=== PATIENT | female | born 1965 | race Caucasian/White ===

== ENCOUNTER 2017-06-14 18:02 | Inpatient (IN) | payer OTHER ==
[~2017-06-14] VITALS: Ht 154.9 cm; Wt 55.3 kg
--- NOTE | ~2017-06-14 | PR ---
[place], [place] PROGRESS NOTE NAME: JOE PEREZ [facility] #: [id number] UNIT #: [id number] ROOM: 427 DOCTOR: ROLF GALLOWAY MD BIRTHDATE: [birth year] DOS: 06/16/2017 SUBJECTIVE: The patient is not having any new complaints. Denies any chest pains, palpitations or shortness of breath. Abdominal pain is improved. OBJECTIVE: VITAL SIGNS: Pressure is 124/72, pulse of 86, respirations 20, temperature 97.7. LUNGS: Diminished breath sounds. No wheezes, rales or rhonchi heard. HEART: Regular. ABDOMEN: Obese, soft, nontender this morning. EXTREMITIES: Without any edema. ASSESSMENT AND PLAN: 1. Acute diverticulitis with small intramural abscesses. The patient is clinically much improved with less abdominal pain. Appreciate Dr. Chance's input. WBC count is pending today. 2. History of gastroesophageal reflux disease, diverticulosis. The patient to have a colonoscopy as an outpatient when the infection is all better. We will start on a regular diet and hopefully can discharge in a.m. ROLF GALLOWAY MD CM:PNTRANS [id number] ROLF GALLOWAY MD 06/16/17 0748 interface
--- NOTE | ~2017-06-14 | PR ---
[place], [place] PROGRESS NOTE [id number] UNIT #: [id number] ROOM: 427 DOCTOR: LAYTON CAMPUZANO MD BIRTHDATE: [birth year] DOS: 06/19/2017 SUBJECTIVE: The patient still have some suprapubic and right lower quadrant pain. OBJECTIVE: GENERAL APPEARANCE: The patient is alert and oriented x 3, in no visible distress. VITAL SIGNS: Blood pressure 108/73, heart rate 78 beats per minute, breathing 20 times per minute, temperature 98 degrees Fahrenheit. HEENT AND NECK: Exam within normal limits. CARDIOVASCULAR SYSTEM: Heart rate is regular in rate and rhythm. S1 and S2 normally audible. LUNGS: Clear to auscultation. ABDOMEN: Exam except for that right lower quadrant tenderness to date. No rigidity, guarding or rebound tenderness. EXTREMITIES: Without significant cyanosis or edema. IMPRESSION: 1. Persistent right lower quadrant pain and tenderness and diverticulitis with small intramural abscess, being followed by Surgery. White cell count persistently high at 13,300 despite of treatment with IV antibiotics. I will also get Infectious Disease specialist, Dr. Hernandez involved in patient's care and continue the antibiotics. 2. Previous history of diverticulosis. 3. Chronic migraine type headaches. 4. Gastroesophageal reflux disease and esophagitis, asymptomatic. 5. History of diverticulosis. LAYTON CAMPUZANO MD CM:PNTRANS [phone] LAYTON CAMPUZANO MD 06/19/172141 interface
--- NOTE | ~2017-06-14 | PR ---
[place], [place] PROGRESS NOTE NAME: JOE PEREZ [facility] #: [id number] UNIT #: [id number] ROOM: 427 DOCTOR: LAYTON CAMPUZANO MD BIRTHDATE: [birth year] DOS: 06/17/2017 SUBJECTIVE: The patient says her right lower quadrant pain is improved and they are only 2/10 now and she is on liquid diet. OBJECTIVE: VITAL SIGNS: Blood pressure 123/66, heart rate 73 beats per minute, breathing 20 times per minute, temperature 98.3 degrees Fahrenheit. GENERAL APPEARANCE: The patient is alert and oriented x 3, in no visible distress. Except for mild tenderness in the right lower quadrant on palpation. HEENT AND NECK: Exam within normal limits. CARDIOVASCULAR SYSTEM: Heart rate is regular in rate and rhythm. S1 and S2 normally audible. LUNGS: Clear to auscultation. ABDOMEN: Soft, nontender. No obvious organomegaly. Bowel sounds are present. EXTREMITIES: Without significant cyanosis or edema. IMPRESSION: The patient is being followed by surgeon, Dr. Chance. 1. Acute diverticulitis with right lower quadrant tenderness, clinically improving, small intramural abscess, recommended conservative treatment by Surgery. 2. Leukocytosis from diverticulitis. White cell count of 12,800, improving with treatment. 3. Gastroesophageal reflux disease and esophagitis, asymptomatic. 4. History of diverticulosis. LAYTON CAMPUZANO MD CM:PNTRANS 99 3 LAYTON CAMPUZANO MD 06/18/17213 interface
--- NOTE | ~2017-06-14 | PR ---
[place], [place] PROGRESS NOTE NAME: JOE PEREZ [facility] #: [id number] UNIT #: [id number] ROOM: 427 DOCTOR: LAYTON CAMPUZANO MD BIRTHDATE: [birth year] DOS: 06/18/2017 ____ 1. Acute diverticulitis involving mid sigmoid colon with 1.6 cm possible intramural abscess involving the affected segment. The patient is recommended followup colonoscopy as an outpatient. 2. Chronic migraine type of headaches. The patient's white cell count got elevated, so Dr. Chance, the surgeon does not want patient going home today until the leukocytosis resolves. 3. Gastroesophageal reflux disease and esophagitis, asymptomatic. 4. History of diverticulosis. 5. Leukocytosis related to diverticulitis. White cell count elevated at 13,900, more than yesterday. LAYTON CAMPUZANO MD CM:PNTRANS [phone] LAYTON CAMPUZANO MD 06/18/172054 interface
--- NOTE | ~2017-06-14 | WRIGHTHP ---
[place], [place] PATIENT HISTORY AND PHYSICAL EXAM NAME: JOE PEREZ [facility] #: [id number] UNIT #: [id number] ROOM: 427 DOCTOR: ROLF GALLOWAY MD BIRTHDATE: [birth year] DOS: 06/14/2017 HISTORY OF PRESENT ILLNESS: The patient is 51 years old, comes in with complaints of abdominal pain. On Wednesday she had eaten some corn and developed some abdominal pain, right after that and she has been having continued pain for the last 3-4 days. She denies having any chest pains or palpitations, does not have any fever or chills. Does not have any nausea or any emesis. She came into the Emergency Room yesterday after suffering for a few days at home and had workup including a CT of the abdomen and pelvis as well as a white cell count, which showed acute diverticulitis with a small intramural abscess as well as a white cell count of 16.3. This morning, the patient has pain, but otherwise feels okay. Denies having any chest pains or palpitations. PAST MEDICAL HISTORY: Significant for history of diverticulitis with a colonoscopy about 6 years ago. SOCIAL HISTORY: Significant for smoking about a half a pack of cigarettes a day, does not use any alcohol. Lives at home. She is not . Her children are all grown. She is not currently employed. FAMILY HISTORY: Significant for father who of lung cancer and mother who has dementia. PHYSICAL EXAMINATION: GENERAL: She is awake and alert and oriented. VITAL SIGNS: Graphic trend shows a pressure 120/69, pulse of 81, respirations 20, temperature 97.6. LUNGS: Diminished breath sounds. No wheezes, rales or rhonchi heard. HEART: Regular. ABDOMEN: Obese, soft, tenderness in the left lower quadrant. EXTREMITIES: Without any edema. LABORATORY DATA: White cell count is 16.3, hemoglobin 15.1, hematocrit 44.7. Comprehensive normal limits. CT scan finding as above. ASSESSMENT AND PLAN: 1. Acute diverticulitis with a small intramural abscess. The patient is placed on Flagyl and Cipro, kept n.p.o. and IV fluids ordered. A surgical consultation was obtained. 2. History of diverticulitis with colonoscopy about 6 years ago. 3. Chronic migraine headaches. She takes sumatriptan, which will be continued. Also, meloxicam, which will be kept on hold right now. [place], [place] PATIENT HISTORY AND PHYSICAL EXAM NAME: JOE PEREZ UNIT #: [id number] ROOM: [facility] DOCTOR: ROLF GALLOWAY MD BIRTHDATE: [birth year] ROLF GALLOWAY MD CM:HISPHYS:PATIENT HISTORY AND PHYSICAL EXAMINATION 1 0 ROLF GALLOWAY MD 06/15/17830 interface
--- NOTE | ~2017-06-14 | DS ---
[place], [place] DISCHARGE SUMMARY [facility] [id number] UNIT #: [id number] ROOM: 427 DOCTOR: LAYTON CAMPUZANO MD BIRTHDATE: [birth year] DOS: 06/19/2017 DISCHARGE DIAGNOSES: 1. Acute sigmoid diverticulitis with leukocytosis evaluated by Dr. Flores, the surgeon today and cleared for discharge. 2. Chronic migraine type headaches. 3. Gastroesophageal reflux disease and esophagitis. 4. History of diverticulosis. 5. History of colonoscopy 6 years back. HOSPITAL COURSE: The patient was admitted by Dr. Caryn José when she presented with abdominal pains and the CT of the abdomen showed sigmoid diverticulitis with a small intramural abscess with white cell count elevated to 16,300. The patient was admitted and seen by Dr. Chance, the surgeon and recommended conservative treatment with antibiotics. White cell count has improved to 13,300 and the patient was seen by another surgeon, Dr. Flores today and he has cleared her for discharge and for patient to take Levaquin and Flagyl as an outpatient now for 10 more days and follow up with Surgery and with primary care physician, Dr. José. For the rest of the details, please see the progress note I dictated today. White cell count has reduced to 13,300. DISCHARGE MANAGEMENT: Flagyl 500 mg 3 times a day for 10 days, Levaquin 500 mg daily for 10 days, Vicodin 1 tablet every 6 hours p.r.n. for pain, Imitrex 25 mg every 2 hours p.r.n., not to exceed 2 tablets a day. FOLLOWUP: 1. Follow up with Dr. Caryn José and with Surgery in less than a week. 2. Recommend a repeat of CBC. LAYTON CAMPUZANO MD CM:CHRISTINA [phone] LAYTON CAMPUZANO MD 06/19/172030 interface
[~2017-06-14 18:02] MED LIST: FLEXERIL5 MG PO; MOBIC15 MG PO; PREDNICOT20 MG PO; PREDNISONE5 MG PO; PROZAC10 M1 PO; TRAMADOL50 MG PO; ULTRAM50 MG PO
[2017-06-14 18:08] VITALS: BP 130/90
[2017-06-14 19:07] LABS: HEMATOCRIT 44.7 % (37.0-47.0); HEMOGLOBIN 15.1 g/dl (12.0-16.0); MEAN CELL VOLUME 91.8 fl (81.0-99.0); MEAN CORPUSCULAR HGB CONC 33.8 g/dl (33.0-37.0); MEAN PLATELET VOLUME 9.5 fl (9.6-12.3); PLATELET COUNT AUTOMATED 293 10*3/uL (130-400); RED BLOOD COUNT 4.87 10*6/uL (4.10-5.10); RED CELL DISTRI WIDTH 13.5 % (0-14.5); WHITE BLOOD COUNT 16.3 10*3/uL (4.8-10.8)
[2017-06-14 19:10] VITALS: BP 119/75
--- NOTE | 2017-06-14 19:20 | NUR ---
PATIENT STATES PAIN 2/10 WHEN LAYING WHEN WALKING HIGHER
[2017-06-14 19:24] LABS: ALBUMIN 3.6 gm/dl (3.1-4.5); ALKALINE PHOSPHATASE 85 U/L (45-117); BUN 16 mg/dl (7-24); CHLORIDE 100 mmol/L (98-107); CREATININE 0.74 mg/dL (0.55-1.02); LIPASE 142 U/L (73-393); POTASSIUM 3.9 mmol/L (3.5-5.1); SGOT/AST 15 IU/L (3-35); SGPT/ALT 19 U/L (12-78); SODIUM 139 mmol/L (136-145); TOTAL PROTEIN 8.6 gm/dL (6.4-8.2)
[2017-06-14 19:25] LABS: PLATELET SUFFICIENCY NORMAL (NORMAL); TOTAL CELLS COUNTED 100 #CELLS
[2017-06-14 20:23] LABS: BILIRUBIN NEGATIVE (NEGATIVE); BLOOD 1+ (NEGATIVE); CLARITY SL CLOUDY (CLEAR); COLOR YELLOW (YELLOW); GLUCOSE NEGATIVE (NEGATIVE); KETONE NEGATIVE (NEGATIVE); LEUKO ESTERASE NEGATIVE (NEGATIVE); NITRITE NEGATIVE (NEGATIVE); PH 5.5 (5.0-9.0); SPECIFIC GRAVITY <= 1.005 (1.005-1.030); UROBILINOGEN 0.2 E.U./dl (0.2-1.0)
[2017-06-14 20:49] LABS: BACTERIA TRACE; WBC 0-2 wbc/hpf (0-5)
[2017-06-14 21:30] VITALS: BP 131/84
--- NOTE | 2017-06-14 21:30 | NUR ---
Time: 2129 A 51 year old FEMALE admitted to under services of DR. NILESH PICKENS,ROLF. Pt. arrived via stretcher from ER. Chief complaint: DIVERTICULITIS, LEUKOCYTOSIS. MITCHELL ALARCON
--- NOTE | 2017-06-14 22:06 | NUR ---
SPOKE TO AT THIS TIME. NEW ADMISSION ORDERS RECEIVED.
--- NOTE | 2017-06-14 22:25 | NUR ---
SPOKE WITH AT THIS TIME REGARDING PATIENT REQUESTING NICOTINE PATCH. INSTRUCTED TO ORDER 14 MG NICOTINE PATCH DAILY.
--- NOTE | 2017-06-14 23:21 | NUR ---
IV DEMEROL ADMINISTERED SLOWLY PER PRN ORDER FOR PATIENT C/O ABDOMINAL PAIN 03/03. PATIENT STATES PAIN IS "ALL OVER" AND SAYS IT "COMES AND GOES." WILL MONITOR EFFECTIVENESS. CALL LIGHT LEFT WITHIN REACH.
[2017-06-15] VITALS: BP 120/69
[2017-06-15] MEDS ORDERED: IMITREX25 M1 PO (00:21)
--- NOTE | 2017-06-15 00:29 | NUR ---
EARLIER MEDICATION APPEARS EFFECTIVE. PATIENT ASLEEP IN BED AT THIS TIME. NO S/S OF DISTRESS NOTED. WILL CONTINUE TO MONITOR. CALL LIGHT LEFT WITHIN REACH.
--- NOTE | 2017-06-15 06:56 | NUR ---
CALLED AT THIS TIME REGARDING CONSULT. NO NEW ORDERS RECEIVED.
--- NOTE | 2017-06-15 07:30 | NUR ---
DR GALLOWAY IN TO SEE PATIENT.
[2017-06-15 08:00] VITALS: BP 111/82
--- NOTE | 2017-06-15 08:00 | NUR ---
Pencil Sorter in to talk to patient. Patient states lives at HOME [place] with A ROOM MATE. There are 3 steps in the home. Physician: DR FERNANDES Pharmacy: [facility] [place] Home health services: NONE Patient's level of ADLs: INDEPENDENT Patient has working utilities: NO ELECTIRC AT PRESENT. HAVING SOLAR PANELS PUT IN ON Jun. DENIES NEEDS WITH THIS ISSUE. DME: NONE Follow-up physician's appointment after d/c: PREFERS TO MAKE HER OWN APPT Does patient want to access PORTAL?: Discharge plan HOME. ANGEL CONCEPCION
--- NOTE | 2017-06-15 08:13 | NUR ---
PRN PAIN MED GIVEN FOR RLQ ABDOMINAL PAIN.
--- NOTE | 2017-06-15 08:30 | NUR ---
DR KEITA IN TO SEE PATIENT.
--- NOTE | 2017-06-15 09:13 | NUR ---
PRN PAIN MED EFFECTIVE FOR ABDOMINAL PAIN, PT REPORTS 3/10.
[2017-06-15 12:00] VITALS: BP 136/72
--- NOTE | 2017-06-15 14:03 | NUR ---
PRN PAIN MED GIVEN FOR 4/10 LLQ PAIN.
--- NOTE | 2017-06-15 14:03 | NUR ---
PRN PAIN MED GIVEN FOR 3/10 RLQ PAIN.
--- NOTE | 2017-06-15 15:03 | NUR ---
PRN PAIN MED SOMEWHAT EFFECTIVE, PT REPORTS INTERMITTENT ABDOMINAL CRAMPING. PAIN REPORTED AT NONE INBETWEEN CRAMPS.
[2017-06-15 16:00] VITALS: BP 144/77
[2017-06-15 20:00] VITALS: BP 132/66
--- NOTE | 2017-06-15 22:36 | NUR ---
DEMEROL REQUESTED BY PATIENT FOR PAIN IN ABDOMEN. GIVEN PER ORDER.
--- NOTE | 2017-06-15 23:15 | NUR ---
PAIN MEDICATION EFFECTIVE, PAIN SUBSIDED.
[2017-06-16] VITALS: BP 120/74
[2017-06-16 04:00] VITALS: BP 124/72
[2017-06-16 07:19] LABS: BASO # 0.1 10*3/uL (0.0-0.1); BASO % 0.4 % (0.0-1.0); EOS # 0.1 10*3/uL (0.0-0.4); EOS % 0.5 % (1.0-4.0); HEMATOCRIT 39.5 % (37.0-47.0); HEMOGLOBIN 13.1 g/dl (12.0-16.0); LYMPH # 2.7 10*3/uL (1.3-4.4); LYMPH % 21.3 % (27.0-41.0); MEAN CELL VOLUME 92.7 fl (81.0-99.0); MEAN CORPUSCULAR HGB 30.8 pg (27.0-31.0); MEAN CORPUSCULAR HGB CONC 33.2 g/dl (33.0-37.0); MEAN PLATELET VOLUME 9.6 fl (9.6-12.3); MONO % 8.2 % (3.0-9.0); NEUT # 8.8 10*3/uL (2.3-7.9); NEUT % 69.2 % (47.0-73.0); PLATELET COUNT AUTOMATED 238 10*3/uL (130-400); RED BLOOD COUNT 4.26 10*6/uL (4.10-5.10); WHITE BLOOD COUNT 12.8 10*3/uL (4.8-10.8)
[2017-06-16 07:40] LABS: BUN 9 mg/dl (7-24); CHLORIDE 103 mmol/L (98-107); CREATININE 0.65 mg/dL (0.55-1.02); POTASSIUM 3.9 mmol/L (3.5-5.1); SODIUM 140 mmol/L (136-145)
[2017-06-16 08:00] VITALS: BP 128/80
--- NOTE | 2017-06-16 08:29 | NUR ---
DR KEITA IN TO SEE PATIENT.
--- NOTE | 2017-06-16 11:24 | NUR ---
PRN PAIN MED GIVEN FOR RLQ PAIN 05/03.
--- NOTE | 2017-06-16 11:31 | NUR ---
DR KEITA NOTIFIED THAT PATIENT IN EXTREME PAIN, RATING PAIN AT 7/10. DR KEITA STATES TO KEEP PATIENT NPO.
[2017-06-16 12:00] VITALS: BP 136/74
--- NOTE | 2017-06-16 12:24 | NUR ---
PRN PAIN MED EFFECTIVE, PT REPORTS PAIN 2/10.
[2017-06-16 16:00] VITALS: BP 122/66
--- NOTE | 2017-06-16 16:52 | NUR ---
PRN PAIN MED GIVEN FOR 3/10 RLQ PAIN.
--- NOTE | 2017-06-16 17:52 | NUR ---
PRN PAIN MED EFFECTIVE, PT REPORTS PAIN STILL AT A 3/10 BUT SHE IS COMFORTABLE WITH THIS.
--- NOTE | 2017-06-16 19:26 | NUR ---
CHART CHECK COMPLETED.
--- NOTE | 2017-06-16 19:48 | NUR ---
PT WITHOUT COMPLAINTS AT THIS TIME. DISCUSSING FOODS TO AVOID WITH DIVERTICULAR DISEASE.
[2017-06-16 20:00] VITALS: BP 134/67
[2017-06-17] VITALS: BP 109/63
--- NOTE | 2017-06-17 | NUR ---
NORCO GIVEN AT 2245 WAS EFFECTIVE FOR HEADACHE PER PT UPON ASKING AT MIDNIGHT ROUNDS.
[2017-06-17 01:00] VITALS: BP 122/66
--- NOTE | 2017-06-17 06:54 | NUR ---
[facility] MIDDLE AREA. 01/01.
[2017-06-17 08:06] VITALS: BP 119/75
[2017-06-17] MEDS ORDERED: MIRALAX POWDER255 G1 PO (08:13)
[2017-06-17 12:00] VITALS: BP 114/72
--- NOTE | 2017-06-17 14:03 | NUR ---
PT MEDICATED WITH PRN NORCO PER PT REQUEST FOR COMPLAINT OF LOWER ABD PAIN. PT REPORTED SHE HAD A MEDIUM BOWEL MOVEMENT.
--- NOTE | 2017-06-17 14:45 | NUR ---
PER PT NORCO EFFECTIVE.
[2017-06-17 16:00] VITALS: BP 123/66
--- NOTE | 2017-06-17 19:50 | NUR ---
DENIES PAIN AT THIS TIME.
[2017-06-17 20:00] VITALS: BP 115/58; BP 151/81
[2017-06-18] VITALS: BP 159/72
--- NOTE | 2017-06-18 01:03 | NUR ---
24 HR chart check completed.
--- NOTE | 2017-06-18 03:46 | NUR ---
Medicated with Hart po prn for lower abd. pain rating 5/10. Will monitor effectiveness. Call light within reach.
--- NOTE | 2017-06-18 04:45 | NUR ---
Patient resting quietly in bed with eyes closed. [place] effective. Will continue to monitor. Call light within reach.
[2017-06-18 06:57] LABS: BASO % 0.3 % (0.0-1.0); EOS # 0.1 10*3/uL (0.0-0.4); EOS % 0.5 % (1.0-4.0); HEMATOCRIT 36.8 % (37.0-47.0); HEMOGLOBIN 12.4 g/dl (12.0-16.0); LYMPH # 2.6 10*3/uL (1.3-4.4); MEAN CELL VOLUME 91.1 fl (81.0-99.0); MEAN CORPUSCULAR HGB 30.7 pg (27.0-31.0); MEAN CORPUSCULAR HGB CONC 33.7 g/dl (33.0-37.0); MEAN PLATELET VOLUME 10.2 fl (9.6-12.3); MONO # 1.1 10*3/uL (0.1-1.0); MONO % 8.1 % (3.0-9.0); NEUT # 9.9 10*3/uL (2.3-7.9); NEUT % 71.6 % (47.0-73.0); PLATELET COUNT AUTOMATED 239 10*3/uL (130-400); RED BLOOD COUNT 4.04 10*6/uL (4.10-5.10); WHITE BLOOD COUNT 13.9 10*3/uL (4.8-10.8)
[2017-06-18 08:00] VITALS: BP 93/65
[2017-06-18 12:00] VITALS: BP 94/54
[2017-06-18] MEDS ORDERED: AUGMENTIN 875-875 MG PO (12:12)
--- NOTE | 2017-06-18 12:34 | NUR ---
SPOKE WITH DR GIMENEZ, HE DOES NOT WANT PT TO GO HOME TODAY
[2017-06-18 16:00] VITALS: BP 124/71
[2017-06-18 20:00] VITALS: BP 110/67
[2017-06-19] VITALS: BP 97/63
[2017-06-19 06:40] LABS: BASO # 0.1 10*3/uL (0.0-0.1); BASO % 0.5 % (0.0-1.0); EOS # 0.1 10*3/uL (0.0-0.4); EOS % 0.9 % (1.0-4.0); HEMATOCRIT 39.5 % (37.0-47.0); HEMOGLOBIN 13.4 g/dl (12.0-16.0); LYMPH # 3.3 10*3/uL (1.3-4.4); LYMPH % 24.9 % (27.0-41.0); MEAN CELL VOLUME 90.6 fl (81.0-99.0); MEAN CORPUSCULAR HGB 30.7 pg (27.0-31.0); MEAN CORPUSCULAR HGB CONC 33.9 g/dl (33.0-37.0); MEAN PLATELET VOLUME 9.7 fl (9.6-12.3); MONO # 1.1 10*3/uL (0.1-1.0); NEUT # 8.6 10*3/uL (2.3-7.9); NEUT % 65.1 % (47.0-73.0); PLATELET COUNT AUTOMATED 287 10*3/uL (130-400); RED BLOOD COUNT 4.36 10*6/uL (4.10-5.10); RED CELL DISTRI WIDTH 13.2 % (0-14.5); WHITE BLOOD COUNT 13.3 10*3/uL (4.8-10.8)
--- NOTE | 2017-06-19 07:30 | NUR ---
ASSUMED CARE OF PT AT THIS TIME, PT IS RESTING IN BED WITH EYES OPEN, NO S/S OF DISTRESS
[2017-06-19 08:00] VITALS: BP 115/60
[2017-06-19 12:00] VITALS: BP 108/73
--- NOTE | 2017-06-19 15:19 | NUR ---
PT RESTING IN BED WITH EYES OPEN WATCHING TV, RESPS EASY AND NONLABORED WITH NO S/S OF DISTRESS CALL LIGHT WITH IN REACH
--- NOTE | 2017-06-19 15:59 | NUR ---
DR. HARP'S ANSWERING SERVICE NOTIFIED OF CONSULT.
[2017-06-19 16:00] VITALS: BP 128/73
[2017-06-19] MEDS ORDERED: LEVOFLOXACIN500 MG PO (18:46)
[2017-06-19] MEDS ORDERED: FLAGYL500 MG PO (18:46)
--- NOTE | 2017-06-19 19:52 | NUR ---
Discharge instructions reviewed with patient/family. Patient receptive and verbalizes understanding. Follow-up care arranged. Written instructions given to patient/family. ONEIL CHOWDARY
== END 2017-06-19 19:52 | disposition home or self-care (01) | DRG 392 ==
LOC: ED 18:02 → EDHOLD 20:45 → 4E 20:45
PROVIDERS: Emergency Medicine; Internal Medicine; ADMIT Internal Medicine
DX: K57.20 Diverticulitis of large intestine with perforation and abscess without bleeding (principal); D72.829 Elevated white blood cell count, unspecified; F17.210 Nicotine dependence, cigarettes, uncomplicated; G43.909 Migraine, unspecified, not intractable, without status migrainosus; K21.0 Gastro-esophageal reflux disease with esophagitis; K57.30 Diverticulosis of large intestine without perforation or abscess without bleeding; Z79.899 Other long term (current) drug therapy; Z80.1 Family history of malignant neoplasm of trachea, bronchus and lung

== ENCOUNTER → 2017-06-29 | Outpatient (CLI) | payer OTHER ==
[~2017-06-29] MED LIST changes: +AUGMENTIN 875-875 MG PO; +FLAGYL500 MG PO; +IMITREX25 M1 PO; +LEVOFLOXACIN500 MG PO; +MIRALAX POWDER255 G1 PO
[2017-06-29 17:08] LABS: HEMATOCRIT 38.7 % (37.0-47.0); HEMOGLOBIN 12.6 g/dl (12.0-16.0); MEAN CELL VOLUME 94.4 fl (81.0-99.0); MEAN CORPUSCULAR HGB 30.7 pg (27.0-31.0); MEAN CORPUSCULAR HGB CONC 32.6 g/dl (33.0-37.0); MEAN PLATELET VOLUME 8.9 fl (9.6-12.3); RED BLOOD COUNT 4.1 10*6/uL (4.10-5.10); WHITE BLOOD COUNT 12.2 10*3/uL (4.8-10.8)
[2017-06-29 17:36] LABS: ALBUMIN 3.1 gm/dl (3.1-4.5); ALKALINE PHOSPHATASE 67 U/L (45-117); BUN 17 mg/dl (7-24); CHLORIDE 107 mmol/L (98-107); CHOLESTEROL 118 mg/dL (<200); CREATININE 0.65 mg/dL (0.55-1.02); HDL CHOLESTEROL 41 mg/dl (40-60); LDL CHOLESTEROL 55 mg/dL (9-159); POTASSIUM 3.8 mmol/L (3.5-5.1); SGOT/AST 21 IU/L (3-35); SGPT/ALT 16 U/L (12-78); SODIUM 141 mmol/L (136-145); TRIGLYCERIDES 111 mg/dl (<150); VLDL CHOLESTEROL 22 mg/dL (6-40)
== END | disposition home or self-care (01) ==
LOC: LAB 16:39
PROVIDERS: Family Medicine
DX: E78.00 Pure hypercholesterolemia, unspecified (principal); F41.1 Generalized anxiety disorder; E74.00 Glycogen storage disease, unspecified; M54.31 Sciatica, right side; M54.9 Dorsalgia, unspecified; Z87.19 Personal history of other diseases of the digestive system

== ENCOUNTER → 2017-07-12 | Outpatient (CLI) | payer OTHER ==
[2017-07-12 09:52] LABS: HEMOGLOBIN 14.4 g/dl (12.0-16.0); MEAN CELL VOLUME 94.3 fl (81.0-99.0); MEAN CORPUSCULAR HGB 31.6 pg (27.0-31.0); MEAN CORPUSCULAR HGB CONC 33.5 g/dl (33.0-37.0); MEAN PLATELET VOLUME 9.2 fl (9.6-12.3); RED BLOOD COUNT 4.56 10*6/uL (4.10-5.10); RED CELL DISTRI WIDTH 14.3 % (0-14.5); WHITE BLOOD COUNT 11.8 10*3/uL (4.8-10.8)
[2017-07-13 08:11] LABS: RHEUMATOID ARTHRITIS FACTOR <10.0 IU/mL (0.0-13.9)
== END | disposition home or self-care (01) ==
LOC: LAB 09:28
PROVIDERS: Family Medicine
DX: D72.829 Elevated white blood cell count, unspecified (principal); M25.561 Pain in right knee; M25.562 Pain in left knee; M79.1 Myalgia

== ENCOUNTER 2017-08-22 10:22 | Emergency (ER) | payer OTHER ==
[~2017-08-22] VITALS: Ht 154.9 cm; Wt 55.8 kg
[2017-08-22 10:57] LABS: BASO # 0.1 10*3/uL (0.0-0.1); BASO % 0.4 % (0.0-1.0); EOS % 0.2 % (1.0-4.0); HEMATOCRIT 45.8 % (37.0-47.0); HEMOGLOBIN 15.6 g/dl (12.0-16.0); LYMPH # 2.9 10*3/uL (1.3-4.4); MEAN CELL VOLUME 91.4 fl (81.0-99.0); MEAN CORPUSCULAR HGB 31.1 pg (27.0-31.0); MEAN CORPUSCULAR HGB CONC 34.1 g/dl (33.0-37.0); MEAN PLATELET VOLUME 9.7 fl (9.6-12.3); MONO # 1.4 10*3/uL (0.1-1.0); MONO % 7.1 % (3.0-9.0); NEUT # 14.9 10*3/uL (2.3-7.9); NEUT % 76.9 % (47.0-73.0); PLATELET COUNT AUTOMATED 265 10*3/uL (130-400); RED BLOOD COUNT 5.01 10*6/uL (4.10-5.10); RED CELL DISTRI WIDTH 13.2 % (0-14.5); WHITE BLOOD COUNT 19.4 10*3/uL (4.8-10.8)
[2017-08-22 11:08] LABS: ALKALINE PHOSPHATASE 89 U/L (45-117); BUN 15 mg/dl (7-24); CHLORIDE 102 mmol/L (98-107); LIPASE 130 U/L (73-393); POTASSIUM 3.9 mmol/L (3.5-5.1); SGOT/AST 14 IU/L (3-35); SGPT/ALT 13 U/L (12-78); SODIUM 136 mmol/L (136-145); TOTAL PROTEIN 8.4 gm/dL (6.4-8.2)
[2017-08-22 11:15] LABS: BILIRUBIN 1+ (NEGATIVE); BLOOD 2+ (NEGATIVE); CLARITY SL CLOUDY (CLEAR); COLOR YELLOW (YELLOW); GLUCOSE NEGATIVE (NEGATIVE); KETONE 1+ (NEGATIVE); LEUKO ESTERASE NEGATIVE (NEGATIVE); NITRITE NEGATIVE (NEGATIVE); PH 5.5 (5.0-9.0); SPECIFIC GRAVITY 1.025 (1.005-1.030)
[2017-08-22 11:26] LABS: MUCOUS 1+
[2017-08-22] MEDS ORDERED: CIPRO500 MG PO (12:56)
[2017-08-22] MEDS ORDERED: FLAGYL500 MG PO (12:56)
[2017-08-22] MEDS ORDERED: ZOFRAN ODT4 MG SL (12:56)
[2017-08-22] MEDS ORDERED: NORCO 5-325 TA1 EACH PO (12:57)
== END 2017-08-22 13:52 | disposition home or self-care (01) ==
LOC: ED 10:22
PROVIDERS: Physician Assistant
DX: K57.32 Diverticulitis of large intestine without perforation or abscess without bleeding (principal); F17.200 Nicotine dependence, unspecified, uncomplicated; F10.10 Alcohol abuse, uncomplicated; Z79.899 Other long term (current) drug therapy

== ENCOUNTER 2017-09-05 13:34 | Inpatient (IN) | payer OTHER ==
[~2017-09-05] VITALS: Ht 154.9 cm; Wt 53.5 kg
[2017-09-05] VITALS: BP 93/59
--- NOTE | ~2017-09-05 | CON ---
[place], [place] REPORT OF CONSULTATION NAME: JOE PEREZ [facility] #: [id number] UNIT #: [id number] ROOM: 518 DOCTOR: CAROLINE ROA MD BIRTHDATE: [birth year] DOS: 09/06/2017 HISTORY OF PRESENT ILLNESS: A 51-year-old patient who has presented with chief complaint of left lower quadrant pain initially and recurrent diverticulitis, apparently first episode 7 years ago, second episode May 2017, and now again. At the time of admission, her white blood cell was 9.3, H and H of 15 and 46. Differential within normal limits. Comprehensive metabolic panel, GFR greater than 60. Electrolytes are balanced. Liver function tests normal. C-reactive protein 0.67. Urinalysis was unremarkable. CT scan of the abdomen was obtained and findings are consistent with diverticulosis of sigmoid colon. The inflammatory changes of sigmoid similar to prior study. No report of abscess formation. No free air. CBC, again no leukocytosis. Urinalysis, no growth. PAST MEDICAL HISTORY: Associated with recurrent diverticulitis, migraine cephalalgia, gastroesophageal reflux. FAMILY HISTORY: Noncontributory. SOCIAL HISTORY: Smoker, nonalcohol consumer. ALLERGIES: To no known medications. MEDICATIONS: List reviewed. PAST SURGICAL HISTORY: None. REVIEW OF SYSTEMS: HEENT: Denies double vision, blurred vision. RESPIRATORY: Denies acute shortness of breath. CARDIOVASCULAR: Denies acute chest pain. DIGESTIVE SYSTEM: Left lower quadrant pain and some cramps now, second day of antibiotic therapy. NEUROMUSCULOSKELETAL: Denies muscle wasting or tremens. PHYSICAL EXAMINATION: VITAL SIGNS: Well-nourished patient. HEENT: Head normocephalic, nontraumatic. Mouth and buccal mucosa benign. No evidence of aphthae ulcer. No ulceration or thrush. NECK: Supple, no thyromegaly, no cervical lymphadenopathy. CHEST: Symmetric anatomy, a few scattered expiratory wheezes. No rub. HEART: Normal sinus rhythm, no gallop, no murmur. ABDOMEN: Soft. No hepato-organomegaly. There is no rebound effect on the left lower quadrant. There is no pulsatile mass. EXTREMITIES: No cyanosis, no pedal edema. NEUROLOGIC: Alert, oriented to time, place, and person. IMPRESSION: 1. Recurrent diverticulitis. I will discuss with the family and the patient if this is becoming recurrent issue this year or the coming year, then I would advise surgical resection of the sigmoid ____ diverticular disease, otherwise, [place], [place] REPORT OF CONSULTATION NAME: JOE PEREZ UNIT #: [id number] ROOM: 518 DOCTOR: CRISPIN PICKENS,CAROLINE BIRTHDATE: [birth year] conservative management with antibiotic in each episode that she is having experienced diverticulitis. 2. Migraines cephalalgia. 3. I believe that she is going towards chronic obstructive pulmonary disease secondary to her smoking habits. PLAN AND DISCUSSION: At this time, we are going to continue with antibiotic therapy as ordered. Segment of this antibiotic therapy could be continued as an outpatient and she can follow up as outpatient in 2 weeks plus for future colonoscopy in the outpatient setting. CAROLINE ROA MD CM:CONSTR:REPORT OF CONSULTATION 1339 09/07/17 0730 interface
--- NOTE | ~2017-09-05 | PR ---
[place], [place] PROGRESS NOTE NAME: JOE PEREZ [facility] #: [id number] UNIT #: [id number] ROOM: 518 DOCTOR: LAYTON CAMPUZANO MD BIRTHDATE: [birth year] DOS: 09/07/2017 SUBJECTIVE: Patient still complains of some lower abdominal discomfort, otherwise better. Now patient has pain in her right deltoid where she had pneumonia vaccination recently. PHYSICAL EXAMINATION: VITAL SIGNS: Blood pressure 147/81, heart rate 84 beats, breathing 18 times per minute, temperature 98.4 degrees Fahrenheit. GENERAL APPEARANCE: The patient is alert and oriented x 3, in no visible distress. HEENT AND NECK: Exam within normal limits. CARDIOVASCULAR SYSTEM: Heart rate is regular in rate and rhythm. S1 and S2 normally audible. LUNGS: Clear to auscultation. ABDOMEN: Soft, nontender. No obvious organomegaly. Bowel sounds are present. EXTREMITIES: Without significant cyanosis or edema. IMPRESSION: 1. Acute sigmoid diverticulitis with left lower quadrant pain with failed outpatient treatment. I would at least give her a few days of IV antibiotics before discharging her at this time. Diverticulitis was reconfirmed on the CT scan of the abdomen and pelvis. 2. Right deltoid pain after getting pneumonia vaccination, to be treated with Tylenol and warm compresses. Patient able to move her extremity and also there is no redness or swelling in the area. 3. Gastroesophageal reflux disease and esophagitis, asymptomatic. 4. Migraine type headaches, being treated with Imitrex. LAYTON CAMPUZANO MD CM:PNTRANS 1645 LAYTON CAMPUZANO MD 09/07/17 2325 interface
--- NOTE | ~2017-09-05 | O ---
[place], [place] OPERATIVE NOTE NAME[facility] [id number] UNIT #: [id number] ROOM: 518 DOCTOR: CAROLINE ROA MD BIRTHDATE: [birth year] DOS: 09/08/2017 HISTORY OF PRESENT ILLNESS: A 51-year-old patient who presented with chief complaint of epigastric abdominal pain, history of diverticulitis as well on antibiotics. The patient has been complaining of nausea and epigastric distress to Dr. Sandoval, therefore, I have been asked for endoscopic assessment of the patient in this regard. Consultation has been dictated. PROCEDURE: Part of investigation is panendoscopy plus biopsy. PREMEDICATION: Versed and Diprivan. SCOPE: Olympus forward-viewing gastroscope Q10 video. DESCRIPTION OF PROCEDURE: After putting the patient in the left lateral position and after application of lubricant to the scope, the scope was introduced. Thereafter, under direct visualization, I advanced through the length of the esophagus without difficulty. Hiatal hernia, which was small was noticed. Gastric pouch was seen. Gastritis seen. Antrum was biopsied for H. pylori. Duodenal bulb, second and third part within normal limits. The patient extubated, tolerated procedure well. IMPRESSION: Small hiatal hernia, gastritis, status post biopsy. PLAN AND DISCUSSION: PPI ____ suffice management. Her labs and records have been reviewed. The patient continues with antibiotic therapy and IV. Her comprehensive metabolic panel, liver function tests are normal and CT scan of the abdomen and pelvis, liver is normal size, spleen, pancreas, and gallbladder all within normal limits. CAROLINE ROA MD CM:OPRECORD:OPERATIVE NOTE [id number] CAROLINE ROA MD 09/08/17 221 interface
--- NOTE | ~2017-09-05 | WRIGHTHP ---
[place], [place] PATIENT HISTORY AND PHYSICAL EXAM NAME: JOE PEREZ [facility] #: [id number] UNIT #: [id number] ROOM: 518 DOCTOR: LAYTON CAMPUZANO MD BIRTHDATE: [birth year] DOS: 09/05/2017 HISTORY OF PRESENT ILLNESS: The patient is a 51-year-old female with a past medical history of; 1. Sigmoid diverticulitis. 2. History of chronic migraine type headaches. 3. GERD and esophagitis. 4. History of diverticulosis. 5. History of colonoscopy 6 years back. The patient was being treated as an outpatient for diverticulitis when she developed increased pain after a week of antibiotic treatment and came back to the Emergency Room and CAT scan again showed diverticulitis involving the sigmoid colon, no leukocytosis. The patient recommended for admission for failed outpatient treatment. No chest pain, no shortness of breath. No other GI or urinary symptoms. REVIEW OF SYSTEMS: LUNGS: No increasing shortness of breath or wheezing. GASTROINTESTINAL: Complains of left lower quadrant pain. No nausea, vomiting, diarrhea or constipation. CARDIOVASCULAR: No chest pain or palpitations. FAMILY HISTORY: Noncontributory. HOME MEDICATIONS: The patient was taking Mobic and Imitrex at home. PHYSICAL EXAMINATION: GENERAL APPEARANCE: Alert and oriented x 3, in no visible distress. HEENT AND NECK: Extraocular movements are intact. Sclerae are anicteric. Oral mucosa is moist and clean. No obvious facial weakness. Neck is supple without any lymphadenopathy. No thyromegaly. No JVD. No carotid arterial bruits. LUNGS: Clear to auscultation. No wheezing. No rhonchi. CARDIOVASCULAR SYSTEM: Heart rate is regular in rate and rhythm. S1 and S2 normally audible. No significant murmur or any other abnormal cardiac sounds. ABDOMEN: Some left lower quadrant tenderness throughout. No rigidity, guarding or rebound tenderness. EXTREMITIES: Without significant cyanosis or edema. Warm to touch. CENTRAL NERVOUS SYSTEM: Alert and oriented x 3. Cranial nerves II-XII are intact. Speech is normal. The patient is able to move all extremities. Normal muscle strength. Deep tendon reflexes are equal on both sides. Plantars were downgoing. IMPRESSION: 1. The patient with failed outpatient treatment for acute sigmoid diverticulitis, which is recurrent. I will treat her with IV Flagyl and IV Zosyn. The patient already had a colonoscopy 6 years back. I will consult Dr. Copeland to see her, the yacht master. 2. Migraine type headaches, treated with p.r.n., Imitrex. 3. History of diverticulosis. [place], [place] PATIENT HISTORY AND PHYSICAL EXAM NAME: JOE PEREZ UNIT #: [id number] ROOM: 518 DOCTOR: LAYTON CAMPUZANO MD BIRTHDATE: [birth year] LAYTON CAMPUZANO MD CM:HISPHYS:PATIENT HISTORY AND PHYSICAL EXAMINATION 05 26 LAYTON CAMPUZANO MD 09/05/172124 interface
--- NOTE | ~2017-09-05 | PR ---
[place], [place] PROGRESS NOTE [id number] #: [id number] ROOM: 518 DOCTOR: LAYTON CAMPUZANO MD BIRTHDATE: [birth year] DOS: 09/06/2017 SUBJECTIVE: The patient ____ dull ache in the left lower quadrant, otherwise now she is complaining of migraine type headache. OBJECTIVE: VITAL SIGNS: Blood pressure 108/69, heart rate 72 beats per minute, breathing 18 times per minute, temperature 98 degrees Fahrenheit. GENERAL APPEARANCE: The patient is alert and oriented x 3, in no visible distress. HEENT AND NECK: Exam within normal limits. CARDIOVASCULAR SYSTEM: Heart rate is regular in rate and rhythm. S1 and S2 normally audible. LUNGS: Clear to auscultation. ABDOMEN: Soft, nontender. No obvious organomegaly. Bowel sounds are present. EXTREMITIES: Without significant cyanosis or edema. IMPRESSION: 1. The patient with acute sigmoid diverticulitis, which is recurrent and failed outpatient treatment and now on Zosyn and Flagyl. Dr. Copeland, the char conveyor tender is following. 2. No signs of perforations ____. 3. Migraine type headache, to be treated with Imitrex, which she takes at home on as needed basis. 4. Gastroesophageal reflux disease and esophagitis, asymptomatic with treatment. LAYTON CAMPUZANO MD CM:PNTRANS [phone] LAYTON CAMPUZANO MD 09/06/17 1258 interface
--- NOTE | ~2017-09-05 | DS ---
[place], [place] DISCHARGE SUMMARY NAME: JOE PEREZ [facility] #: [id number] UNIT #: [id number] ROOM: 518 DOCTOR: LAYTON CAMPUZANO MD BIRTHDATE: [birth year] DOS: 09/09/2017 DISCHARGE DIAGNOSES: 1. Acute sigmoid diverticulitis, which is recurrent and failed treatment at home. 2. Gastroesophageal reflux disease and esophagitis. 3. Nicotine smoke dependence. 4. Migraine type headaches. 5. Patient with EGD and gastric biopsy during this admission and previous history of colonoscopy 6 years back. HOSPITAL COURSE: The patient was admitted when she presented with persistent left lower quadrant pains despite of taking antibiotics for diverticulitis as an outpatient. The patient was found to still have diverticulitis on CT scan of the abdomen and pelvis. The patient was admitted and started on IV Zosyn and IV Flagyl. The patient's symptoms of left lower quadrant pains have resolved today and she also had an EGD yesterday by Dr. Copeland for recurrent nausea and since she is asymptomatic, I will discharge her to home on oral antibiotics for 5 more days. 1. GERD and esophagitis. The patient initially received opioids in the Emergency Department for pain control and later on I started her on IV antibiotics. I controlled her pains with mainly Tylenol and Meloxicam. The patient later on developed significant nausea and vomiting, which was controlled with IV Zofran and nausea for which she was taken for EGD by Dr. Copeland. Finally nausea and vomiting have resolved. 2. Intractable nausea and vomiting, treated with IV Zofran, improved now. The patient says for the first day, she is feeling much better now and I am discharging her to home on oral antibiotics. 3. Migraine type headaches, treated with Imitrex as needed. 4. Gastroesophageal reflux disease and esophagitis, asymptomatic with treatment. 5. Acute sigmoid diverticulitis with failed outpatient treatment and acute left lower quadrant pains, which have resolved with treatment with IV antibiotics. LABORATORY DATA: Normal CBC. CAT scan of the abdomen and pelvis showed sigmoid diverticulitis of the colon. Urine cultures were negative. DISCHARGE MANAGEMENT: The patient takes Imitrex as needed, Meloxicam 15 mg daily, nicotine patch started at 21 mg daily, Augmentin 875 mg twice a day for 5 days and she is to take metronidazole 500 mg every 8 hours for 5 days. Follow up with the PCP, Dr. Tyler Brown next week. [place], [place] DISCHARGE SUMMARY NAME: JOE PEREZ UNIT #: [id number] ROOM: 8 DOCTOR: LAYTON CAMPUZANO MD BIRTHDATE: [birth year] LAYTON CAMPUZANO MD CM:DISCHARG [phone] LAYTON CAMPUZANO MD 09/09/172223 interface
--- NOTE | ~2017-09-05 | PR ---
[place], [place] PROGRESS NOTE [id number] UN[facility] #: [id number] ROOM: 518 DOCTOR: LAYTON CAMPUZANO MD BIRTHDATE: [birth year] DOS: 09/08/2017 SUBJECTIVE: The patient was nauseous this morning with abdominal pains continuing to improve. OBJECTIVE: VITAL SIGNS: Blood pressure 122/80, heart rate 70 beats per minute, breathing 20 times per minute, temperature 98.4 degrees Fahrenheit. GENERAL APPEARANCE: The patient is alert and oriented x 3, in no visible distress. HEENT AND NECK: Exam within normal limits. CARDIOVASCULAR SYSTEM: Heart rate is regular in rate and rhythm. S1 and S2 normally audible. LUNGS: Clear to auscultation. ABDOMEN: Soft, nontender. No obvious organomegaly. Bowel sounds are present. EXTREMITIES: Without significant cyanosis or edema. IMPRESSION AND PLAN: 1. The patient with acute sigmoid diverticulitis, which is recurrent. Left lower quadrant pains are improving with IV antibiotics. The patient had failed outpatient treatment with oral antibiotics. 2. Right deltoid pain after pneumonia vaccination has improved with warm compresses and Tylenol. 3. Gastroesophageal reflux disease and esophagitis, asymptomatic with treatment. 4. Migraine type headache improved with Imitrex. 5. Recurrent nausea for which patient is being checked by EGD by Dr. Copeland today. LAYTON CAMPUZANO MD CM:PNTRANS [id number] LAYTON CAMPUZANO MD 09/09/17 0449 interface
[~2017-09-05 13:34] MED LIST changes: +CIPRO500 MG PO; +NORCO 5-325 TA1 EACH PO; +ZOFRAN ODT4 MG SL
[2017-09-05 13:58] VITALS: BP 145/93
[2017-09-05 14:31] LABS: BASO # 0.1 10*3/uL (0.0-0.1); BASO % 0.9 % (0.0-1.0); EOS # 0.1 10*3/uL (0.0-0.4); EOS % 1.1 % (1.0-4.0); HEMATOCRIT 46.2 % (37.0-47.0); HEMOGLOBIN 15.7 g/dl (12.0-16.0); LYMPH # 3.3 10*3/uL (1.3-4.4); LYMPH % 35.4 % (27.0-41.0); MEAN CELL VOLUME 93.3 fl (81.0-99.0); MEAN CORPUSCULAR HGB 31.7 pg (27.0-31.0); MEAN PLATELET VOLUME 9.4 fl (9.6-12.3); MONO # 0.7 10*3/uL (0.1-1.0); MONO % 7.1 % (3.0-9.0); NEUT # 5.1 10*3/uL (2.3-7.9); NEUT % 55.2 % (47.0-73.0); PLATELET COUNT AUTOMATED 324 10*3/uL (130-400); RED BLOOD COUNT 4.95 10*6/uL (4.10-5.10); RED CELL DISTRI WIDTH 13.7 % (0-14.5); WHITE BLOOD COUNT 9.3 10*3/uL (4.8-10.8)
[2017-09-05 14:46] LABS: BILIRUBIN NEGATIVE (NEGATIVE); BLOOD 1+ (NEGATIVE); CLARITY SL CLOUDY (CLEAR); COLOR YELLOW (YELLOW); GLUCOSE NEGATIVE (NEGATIVE); KETONE NEGATIVE (NEGATIVE); LEUKO ESTERASE NEGATIVE (NEGATIVE); NITRITE NEGATIVE (NEGATIVE); PH 5.5 (5.0-9.0); UROBILINOGEN 0.2 E.U./dl (0.2-1.0)
[2017-09-05 14:47] LABS: ALBUMIN 3.5 gm/dl (3.1-4.5); ALKALINE PHOSPHATASE 64 U/L (45-117); BUN 14 mg/dl (7-24); CHLORIDE 105 mmol/L (98-107); CREATININE 0.57 mg/dL (0.55-1.02); LIPASE 160 U/L (73-393); POTASSIUM 3.8 mmol/L (3.5-5.1); SGOT/AST 14 IU/L (3-35); SGPT/ALT 17 U/L (12-78); SODIUM 136 mmol/L (136-145); TOTAL PROTEIN 7.4 gm/dL (6.4-8.2)
[2017-09-05 14:58] LABS: BACTERIA 1+; MUCOUS TRACE
[2017-09-05 17:40] VITALS: BP 129/74
--- NOTE | 2017-09-05 17:40 | NUR ---
Time: 1739 A 51 year old FEMALE admitted to 5E under services of DR. TATIANNA PICKENS,LAYTON [place] Pt. arrived via wheel chair from ER. Chief complaint: ABDOMINAL PAIN WITH HX OF DIVERTICULITIS. LEILA HARRISON
[2017-09-05 17:44] VITALS: BP 129/74
--- NOTE | 2017-09-05 17:55 | NUR ---
MED RECONCILIATION COMPLETED AT BEDSIDE WITH PT.
--- NOTE | 2017-09-05 18:23 | NUR ---
PT ATE 100% OF MEAL. [employer].
--- NOTE | 2017-09-05 19:31 | NUR ---
PT REQUESTING NICOTINE PATCH AND PNEUMONIA VAC. CALLED AND SPOKE TO DR CAMPUZANO. ORDERS RECEIVED
--- NOTE | 2017-09-05 20:05 | NUR ---
CALLED AND SPOKE TO PHARMACY REGARDING DR ROA ORDER FOR INVAN, THEY STATE WE CAN NOT ORDER THIS MEDICATION. ATTEMPTED TO CALL DR ROA BACK WITH NO ANSWER. WILL TRY AGAIN LATER
--- NOTE | 2017-09-05 20:05 | NUR ---
CALLED AND MADE DR ROA AWARE OF NEW CONSULT. ORDERS RECEIVED
[2017-09-05 20:14] VITALS: BP 110/69
--- NOTE | 2017-09-05 20:18 | NUR ---
CALLED AND SPOKE TO DR ROA REGARDING NOT ABLE TO ORDER REQUESTED MEDICATION. NEW ORDER RECEIVED
[2017-09-06] VITALS (7 sets, daily range): BP systolic 93–149; BP diastolic 57–76
--- NOTE | 2017-09-06 02:00 | NUR ---
SLEEPING. RESP EASY AND NONLABORED ON ROOM AIR. NO DISTRESS NOTED. CALL LIGHT IN REACH. WILL CONTINUE TO MONITOR.
[2017-09-06 06:44] LABS: BASO # 0.1 10*3/uL (0.0-0.1); BASO % 0.7 % (0.0-1.0); EOS # 0.2 10*3/uL (0.0-0.4); EOS % 1.9 % (1.0-4.0); HEMATOCRIT 44.3 % (37.0-47.0); HEMOGLOBIN 14.4 g/dl (12.0-16.0); LYMPH # 4.1 10*3/uL (1.3-4.4); LYMPH % 42.8 % (27.0-41.0); MEAN CELL VOLUME 92.9 fl (81.0-99.0); MEAN CORPUSCULAR HGB 30.2 pg (27.0-31.0); MEAN CORPUSCULAR HGB CONC 32.5 g/dl (33.0-37.0); MEAN PLATELET VOLUME 9.7 fl (9.6-12.3); MONO # 0.9 10*3/uL (0.1-1.0); MONO % 9.2 % (3.0-9.0); NEUT # 4.3 10*3/uL (2.3-7.9); NEUT % 45.1 % (47.0-73.0); PLATELET COUNT AUTOMATED 290 10*3/uL (130-400); RED BLOOD COUNT 4.77 10*6/uL (4.10-5.10); RED CELL DISTRI WIDTH 13.6 % (0-14.5); WHITE BLOOD COUNT 9.6 10*3/uL (4.8-10.8)
--- NOTE | 2017-09-06 08:30 | NUR ---
Assisted Living Home Director in to talk to patient. Patient states lives at HOME with A ROOM MATE. There are 3 steps in the home. Physician: DR FERNANDES Pharmacy: [facility] [place] Home health services: NONE Patient's level of ADLs: INDEPENDENT Patient has working utilities: SEE BELOW DME: NONE Follow-up physician's appointment after d/c: PREFERS TO MAKE HER OWN APPT Does patient want to access PORTAL?: Discharge plan HOME. [employer] PT HAS EXTENSION CORDS FROM [employer] NEXT DOOR FOR ELECTRIC. HAS WOOD BURNER IN LIVING ROOM. HAS NO RUNNING HOT WATER, SO SHOWERS AT SON'S. THEY ARE IN PROCESS OF TRYING TO MARLEE ANOTHER HOME.
--- NOTE | 2017-09-06 13:12 | NUR ---
DR ROA ROUNDED, NO NEW ORDERS.
--- NOTE | 2017-09-06 17:36 | NUR ---
Patient resting quietly with no c/o discomfort. Respirations easy and regular. Vital signs stable. No overt distress.CALL LIGHT IN REACH. \ LEILA HARRISON
--- NOTE | 2017-09-06 20:00 | NUR ---
ASSUMED CARE OF PATIENT. ASSESSMENT COMPLETE. RESTING IN BED. NO VOICED COMPLAINTS. CALL LIGHT IN REACH. WILL CONTINUE TO MONITOR.
[2017-09-07] VITALS: BP 99/62
--- NOTE | 2017-09-07 02:00 | NUR ---
SLEEPING. RESP EASY AND NONLABORED ON ROOM AIR. NO DISTRESS NOTED. CALL LIGHT IN REACH. WILL CONTINUE TO MONITOR.
[2017-09-07 08:00] VITALS: BP 116/69
[2017-09-07 12:00] VITALS: BP 129/79
--- NOTE | 2017-09-07 14:44 | NUR ---
PT GIVEN PRN IMITREX FOR C/O A MIGRAINE. PT REFUSED SCHEDULED TYLENOL AT THIS TIME. IV ANTIBITOC INFUSING PER ORDER.
[2017-09-07 16:00] VITALS: BP 147/81
[2017-09-07 20:00] VITALS: BP 131/73
--- NOTE | 2017-09-07 20:00 | NUR ---
ASSUMED CARE OF PATIENT. ASSESSMENT COMPLETE. RESTING IN BED. NO VOICED COMPLAINTS. CALL LIGHT IN REACH. WILL CONTINUE TO MONITOR.
[2017-09-08] VITALS (12 sets, daily range): BP systolic 117–149; BP diastolic 53–93
--- NOTE | 2017-09-08 02:00 | NUR ---
SLEEPING. RESP EASY AND NONLABORED ON ROOM AIR. NO DISTRESS NOTED. CALL LIGHT IN REACH. WILL CONTINUE TO MONITOR.
--- NOTE | 2017-09-08 07:54 | NUR ---
PT A&Ox3. VS STABLE. CAP REFILL <3. HEART SOUNDS NORMAL. LUNGS ARE CLEAR. NO NOTED EDEMA. SKIN DRY AND INTACT. PT STATED "I FEEL BETTER TODAY" NO COMPLAINTS OF PAIN OR TENDORNESS TO THE ABDOMEN. BSx4. PT COMPLAINED OF NAUSEA. NO MEDICATION AVALIABLE NOTIFIED MATILDE CABEZAS. CIARAN JUÁ[facility]Z [facility] [place]
--- NOTE | 2017-09-08 07:58 | NUR ---
PATIENT RESTING IN BED. PT REPORTS BEING ABLE TO SLEEP THROUGHOUT THE NIGHT. PT IS A&OX3 AND DENIES ANY PAIN, DISCOMFORT OR SOB. PATIENT HAS COMPLAINT OF NAUSEA BUT REPORTS NO EMESIS. PATIENT IS AMBULATORY WITHOUT ASSIST AND DENIES ANY DIZZINESS UPON STANDING. HOB IS ELEVATED, SKIN IS W/D/I, CALL LIGHT IS WITHIN REACH. SEE SHIFT ASSESSMENT.
--- NOTE | 2017-09-08 08:01 | NUR ---
CONTACTED DR. CAMPUZANO ABOUT PT COMPLAINT OF NAUSEA. ORDERS GIVEN FOR PO ZOFRAN SUBLIGUAL. ALSO ORDER GIVEN TO CONTACT FOR UPPER GI CONCERN/NAUSEA.
--- NOTE | 2017-09-08 08:05 | NUR ---
PATIENT HAS A DERRICK ENGINEER STUDENT ON THE FLOOR. STUDENTS WILL BE DOING MED ADMINISTRATION AND DOCUMENTATION.
--- NOTE | 2017-09-08 08:19 | NUR ---
CONTACTED DR. ROA ABOUT UPPER GI CONCERNS. ORDERS GIVEN TO MAKE PT NPO FOR EGD TODAY.
--- NOTE | 2017-09-08 08:25 | NUR ---
PT GIVEN ZOFRAN FOR NAUSEA AT 0825. WILL CONTINUE TO ASSESS. [facility]
--- NOTE | 2017-09-08 08:43 | NUR ---
Received snf order to place patient for IV ATB. In to see patient to discuss placement, she is agreeable. Provided list of available [facility] facilities, patient stated she isn't familiar with any of them so just pick one that will accept her. Contacted Karis Villegas and faxed referral for rehab suites or [facility]. Waiting for acceptance.
--- NOTE | 2017-09-08 09:24 | NUR ---
PHYSICAL THERAPY PAtient evaluated on 5, full evaluation to follow. PAtient is (I) with all functional mobility. D/c PT after evalaution- no PT skills/needs. PAtient agrees with D/C. Thank you for this referral. Marina Mistry,PT
--- NOTE | 2017-09-08 09:28 | NUR ---
ZOFRAN GIVEN SUBLINGUALLY AT 0825 EFFECTIVE. NO MORE C/O NAUSEA. PT UP IN BED. COMPLAINT WITH PRE-OP QUESTINARIE. [facility]
--- NOTE | 2017-09-08 09:33 | NUR ---
Occupational Therapy evaluation completed on 5 with full eval to follow. Precautions include low complexity level 52242, IV UE, right shd pain and limited ROM since flu shot with risk of further decline. Recommend OT per POC for right shd ROM educ/tx and SNF for IV abx. Thank you for this referral Rehana Chavez OTR/L
--- NOTE | 2017-09-08 10:55 | NUR ---
[facility] of [facility] stated patient in not skillable. Stated she is independent and can go home on PO antibiotics, therefore insurance will not approve. In to see patient to notify she doesn't qualify and will go home when stable for discharge. Patient agreeable.
--- NOTE | 2017-09-08 11:51 | NUR ---
STARTED ZOSYN 4.5GM IV DRIP. PT TOLERATED WELL. WAITING TO GO DOWN FOR EGD. [facility]
--- NOTE | 2017-09-08 14:40 | NUR ---
PATIENT IS SITTING UP IN THE BEDSIDE CHAIR. DENIES PAIN, SOB, OR DISCOMFORT. PATIENT HASN'T HAD ANYMORE NAUSEA SINCE THE MORNING. NPO FOR EGD. NO FURTHER REQUESTS AT THIS TIME. FEET ELEVATED, PT AMBULATORY. CALL LIGHT WITHIN REACH.
--- NOTE | 2017-09-08 16:03 | NUR ---
PATIENT IS OFF THE FLOOR VIA WHEELCHAIR FOR EGD.
--- NOTE | 2017-09-08 18:45 | NUR ---
PT IS BACK ON THE FLOOR FROM SURGERY VIA BED.
--- NOTE | 2017-09-08 18:58 | NUR ---
PATIENT IS SITTING UP EATING DINNER IN BED. PATIENT HAS HAD MULTIPLE FORMED BM WITHOUT ANY COMPLAINTS. PT DENIES ANY PAIN, SOB, OR DISCOMFORT. PATIENT IS AMBULATORY WITHOUT ASSIST. PATIENT HAS NO FURTHER REQUESTS AT THIS TIME. CALL LIGHT WITHIN REACH. SEE SHIFT ASSESSMENT.
[2017-09-09] VITALS: BP 122/77
[2017-09-09 08:00] VITALS: BP 106/87
[2017-09-09 12:00] VITALS: BP 121/79
[2017-09-09 16:00] VITALS: BP 108/63
--- NOTE | 2017-09-09 17:30 | NUR ---
IN BED, EATING DINNER AND WATCHING TV. NO COMPLAINTS AT THIS TIME.
[2017-09-09] MEDS ORDERED: NTS1 EACH TD (17:52)
[2017-09-09] MEDS ORDERED: FLAGYL500 MG PO (17:52)
[2017-09-09] MEDS ORDERED: AUGMENTIN 875-875 MG PO (17:52)
--- NOTE | 2017-09-09 18:59 | NUR ---
Discharge instructions reviewed with patient/family. Patient receptive and verbalizes understanding. Follow-up care arranged. Written instructions given to patient/family. NÉSTOR ANGLIN
== END 2017-09-09 19:00 | disposition home or self-care (01) | DRG 392 ==
LOC: ED 13:34 → 5E 16:43 → EDHOLD 16:43 → 5E 16:57
PROVIDERS: Student in an Organized Health Care Education/Training Program; ADMIT Internal Medicine
PROC: 0DB78ZX Excision of Stomach, Pylorus, Via Natural or Artificial Opening Endoscopic, Diagnostic (ICD-10-PCS; principal; 2017-09-08)
DX: K57.32 Diverticulitis of large intestine without perforation or abscess without bleeding (principal); F17.210 Nicotine dependence, cigarettes, uncomplicated; G43.909 Migraine, unspecified, not intractable, without status migrainosus; K21.0 Gastro-esophageal reflux disease with esophagitis; K29.70 Gastritis, unspecified, without bleeding; K44.9 Diaphragmatic hernia without obstruction or gangrene; Z98.891 History of uterine scar from previous surgery

== ENCOUNTER 2017-11-28 14:32 | Emergency (ER) | payer OTHER ==
[~2017-11-28] VITALS: Ht 154.9 cm; Wt 57.2 kg
[~2017-11-28 14:32] MED LIST changes: +NTS1 EACH TD
[2017-11-28 15:03] LABS: BASO # 0.1 10*3/uL (0.0-0.1); BASO % 0.6 % (0.0-1.0); EOS # 0.2 10*3/uL (0.0-0.4); EOS % 1.6 % (1.0-4.0); HEMATOCRIT 42.6 % (37.0-47.0); HEMOGLOBIN 14.2 g/dl (12.0-16.0); LYMPH # 4.6 10*3/uL (1.3-4.4); LYMPH % 32.1 % (27.0-41.0); MEAN CELL VOLUME 92.8 fl (81.0-99.0); MEAN CORPUSCULAR HGB 30.9 pg (27.0-31.0); MEAN CORPUSCULAR HGB CONC 33.3 g/dl (33.0-37.0); MEAN PLATELET VOLUME 9.6 fl (9.6-12.3); NEUT # 8.3 10*3/uL (2.3-7.9); NEUT % 58.3 % (47.0-73.0); PLATELET COUNT AUTOMATED 311 10*3/uL (130-400); RED BLOOD COUNT 4.59 10*6/uL (4.10-5.10); RED CELL DISTRI WIDTH 14.1 % (0-14.5); WHITE BLOOD COUNT 14.2 10*3/uL (4.8-10.8)
[2017-11-28 15:17] LABS: ALBUMIN 3.7 gm/dl (3.1-4.5); ALKALINE PHOSPHATASE 83 U/L (45-117); BUN 14 mg/dl (7-24); CHLORIDE 105 mmol/L (98-107); POTASSIUM 3.8 mmol/L (3.5-5.1); SGOT/AST 18 IU/L (3-35); SGPT/ALT 29 U/L (12-78); SODIUM 139 mmol/L (136-145)
[2017-11-28] MEDS ORDERED: CLINDAMYCIN150 MG PO (16:32)
== END 2017-11-28 16:38 | disposition home or self-care (01) ==
LOC: ED 14:32
PROVIDERS: Student in an Organized Health Care Education/Training Program
DX: L03.213 Periorbital cellulitis (principal); Z98.890 Other specified postprocedural states; Z79.899 Other long term (current) drug therapy

== ENCOUNTER 2017-12-14 17:58 | Inpatient (IN) | payer OTHER ==
[~2017-12-14] VITALS: Ht 154.9 cm; Wt 56.4 kg
--- NOTE | ~2017-12-14 | PR ---
[place], [place] PROGRESS NOTE NAME: JOE PEREZ UNIT #: [id number] ROOM: 424 DOCTOR: LAYTON CAMPUZANO MD BIRTHDATE: [birth year] DOS: 12/17/2017 SUBJECTIVE: The patient is doing well. LAYTON CAMPUZANO MD CM:PNVERÓNICA [phone] LAYTON CAMPUZANO MD 12/17/172048 interface
--- NOTE | ~2017-12-14 | WRIGHTHP ---
[place], [place] PATIENT HISTORY AND PHYSICAL EXAM NAME: JOE PEREZ [facility] #: [id number] UNIT #: [id number] ROOM: 424 DOCTOR: ROLF GALLOWAY MD BIRTHDATE: [birth year] DOS: 12/14/2017 HISTORY OF PRESENT ILLNESS: The patient is 51 years old. The patient has been sick for about a week now. She still has been going to work. Yesterday when she came back from work, she felt extremely weak and had to lay down, so she decided to come into the Emergency Room. She denies having any chest pains or palpitations, does not have any abdominal pain, nausea, any emesis. Her cough is nonproductive, but she does get short of breath on ambulation. She has not been on any medications for these symptoms. PAST MEDICAL HISTORY: Significant for: 1. Last hospitalization in 08/2017 with diverticulitis. 2. Moderate cigarette smoker. 3. Chronic migraine headaches. MEDICATIONS: She is on are sumatriptan and Mobic. SOCIAL HISTORY: Smokes about a half to 1 pack of cigarettes a day. Denies using any alcohol. She is employed. PHYSICAL EXAMINATION: GENERAL: She is awake and alert and oriented. VITAL SIGNS: Graphic trend shows a pressure 110/66, pulse of 102, respirations 20, temperature 99.6 with a T-max of 101.4. LUNGS: Diminished breath sounds. No wheezes, rales, rhonchi heard. HEART: Regular. ABDOMEN: Obese, soft, nontender. EXTREMITIES: Without any edema. Chest x-ray shows no pathology. LABORATORY DATA: White cell count is 24,000. Rapid flu is negative. Lactic acid normal. Comprehensive glucose of 175. Electrolytes: Sodium 133 and chloride 97, only abnormal findings. ASSESSMENT AND PLAN: 1. Viral syndrome. Even though the flu titer was negative, we will add Tamiflu because of continued complaints of diffuse aches and pains, myalgias, arthralgias and fever. 2. The patient with complaints of shortness of breath, elevated white cell count, tachycardia, tachypnea; possibly has an underlying lung process similar to a bronchiolitis. A CT of the chest was done, which showed some mild patchy airspace disease in the lower lobes, could be atelectasis with an early pneumonia, could explain her elevated white cell count. Cultures of blood are pending. Continue antibiotics and add IV fluids. 3. Chronic migraine headaches. Continue home meds. [place], [place] PATIENT HISTORY AND PHYSICAL EXAM NAME: JOE PEREZ UNIT #: [id number] ROOM: [facility] DOCTOR: ROLF GALLOWAY MD BIRTHDATE: [birth year] ROLF GALLOWAY MD CM:HISPHYS:PATIENT HISTORY AND PHYSICAL EXAMINATION 3 ROLF GALLOWAY MD 12/15/17912 interface
--- NOTE | ~2017-12-14 | PR ---
[place], [place] PROGRESS NOTE [id number] #: [id number] ROOM: 424 DOCTOR: ROLF GALLOWAY MD BIRTHDATE: [birth year] DOS: 12/16/2017 SUBJECTIVE: The patient is doing fairly well. This morning, she says that she feels a little better as fever has finally abated. OBJECTIVE EXAMINATION: GENERAL: She is awake and alert and oriented, in no distress. VITAL SIGNS: Blood pressure is 113/69, pulse of 100, respirations 20, temperature 99.4. LUNGS: Diminished breath sounds. No wheezes heard this morning. HEART: Regular. ABDOMEN: Obese, soft, nontender. EXTREMITIES: Without any edema. LABORATORY DATA: White cell count has come down to 16.3 from 24.0, hemoglobin and hematocrit are 11.7 and 34.7, platelets 261. ASSESSMENT AND PLAN: 1. The patient with shortness of breath, fever, tachypnea, and elevated white cell count, with a CT showing airspace disease, bilateral lower lobes, most likely underlying pneumonia, gram negative. The patient is stable and improving with resolving fevers and decreasing WBC count. We will discontinue the droplet production. 2. History of migraine headaches. The headaches have resolved. ROLF GALLOWAY MD CM:PNTRANS [phone] ROLF GALLOWAY MD 12/16/17 2148 interface
--- NOTE | ~2017-12-14 | PR ---
[place], [place] PROGRESS NOTE [id number] #: [id number] ROOM: 424 DOCTOR: LAYTON CAMPUZANO MD BIRTHDATE: [birth year] DOS: SUBJECTIVE: The patient is breathing better with treatment. OBJECTIVE: GENERAL APPEARANCE: The patient is alert and oriented x 3, in no visible distress. VITAL SIGNS: Blood pressure 104/72, heart rate of 110 beats per minute, breathing 20 times per minute, temperature 98.7 degrees Fahrenheit, improved from 100.8 degrees yesterday. HEENT AND NECK: Exam within normal limits. CARDIOVASCULAR SYSTEM: Heart rate is regular in rate and rhythm. S1 and S2 normally audible. LUNGS: Clear to auscultation. ABDOMEN: Soft, nontender. No obvious organomegaly. Bowel sounds are present. EXTREMITIES: Without significant cyanosis or edema. IMPRESSION: 1. Bilateral lower lobe pneumonic infiltrates on CT scan of the chest with leukocytosis, shortness of breath and fever. The patient is being treated for pneumonia. I will get a consult with Dr. Courtney prior to discharging her to home. 2. Leukocytosis and fever are both improving with treatment with azithromycin and ceftriaxone. 3. Migraine type headaches, resolved. 4. Nicotine smoke dependence. The patient encouraged to stop. LAYTON CAMPUZANO MD CM:PNTRANS [phone] LAYTON CAMPUZANO MD 12/17/172123 interface
--- NOTE | ~2017-12-14 | DS ---
[place], [place] DISCHARGE SUMMARY NAME: JOE PEREZ [facility] #: [id number] UNIT #: [id number] ROOM: 424 DOCTOR: LAYTON CAMPUZANO MD BIRTHDATE: [birth year] DOS: 12/18/2017 DISCHARGE DIAGNOSES: 1. Bilateral lower lung pneumonia, treated. The patient is feeling better. 2. Leukocytosis and fever, resolved. 3. Migraine type headaches, controlled. 4. Nicotine smoke dependence. 5. History of colonic diverticulosis. HOSPITAL COURSE: The patient was admitted by Dr. Caryn José for bilateral lower lung infiltrates and pneumonia. The patient was treated with ceftriaxone, azithromycin and Dr. Courtney was consulted to evaluate her. Dr. Courtnye has cleared her for discharge to home with 3 more days of azithromycin and she will follow up with Dr. Tyler Brown, her primary care physician, this week. The patient wants to go back to work tomorrow and she is feeling up to it. Breathing is improved. No chest pain, no increasing shortness of breath, no GI or urinary symptoms anymore. Nicotine smoke dependence, patient encouraged to stop smoking cigarettes. Migraine type headaches, asymptomatic. The patient is doing well. LABORATORY DATA: Blood cultures were negative. Normal serum electrolytes. IgM antibodies were negative, mycoplasma IgG were elevated. No leukocytosis. DISCHARGE MANAGEMENT: Azithromycin 500 mg daily for 3 more days, meloxicam 15 mg daily, Imitrex 50 mg daily p.r.n. for migraine type headaches. Follow up with her PCP within 1 week. LAYTON CAMPUZANO MD CM:CHRISTINA [phone] LAYTON CAMPUZANO MD 12/19/17 0231 interface
--- NOTE | ~2017-12-14 | CON ---
[place], [place] REPORT OF CONSULTATION NAME: JOE PEREZ [facility] #: [id number] UNIT #: [id number] ROOM: 424 DOCTOR: NETTE LONDON MD BIRTHDATE: [birth year] DOS: 12/18/2017 PULMONARY CONSULTATION EVALUATION MANAGEMENT. CONSULTATION REQUESTED BY: Griffin Sandoval M.D. REASON FOR CONSULTATION: Assessment of acute pneumonia. HISTORY OF PRESENT ILLNESS: A 52-year-old white female who has been admitted to the hospital under care of Dr. Sandoval on 12/14/2017. The patient came to the hospital as she has been noted symptoms of general weakness and fatigue. The patient was also noted symptoms of shortness of breath as well. She denies any symptoms of chest pain. The patient stated that she may have flu like symptom. She does have a stuffy head for as well as a sore throat and nonproductive cough. She has been admitted in the hospital and diagnosed with pneumonia. CT scan of the chest was performed on this admission. She denies any symptoms of hemoptysis with that. Does not have any acute pain in the chest at this time. Rapid influenza A, B, nasal washing antigens were noted, all negative. REVIEW OF SYSTEMS: CONSTITUTIONAL SYMPTOMS: Fatigue and tiredness reported. Denies symptoms of fever or chills. EYES: Denies any burning, redness, tenderness. EARS, NOSE, THROAT SYMPTOMS: Denies sore throat, hoarseness, otalgia, postnasal drainage or epistaxis. CARDIOVASCULAR: Denied palpitation, anginal pain, edema or pain of the lower extremities. GASTROINTESTINAL SYMPTOMS: Denies dysphagia, nausea, vomiting, diarrhea, abdominal pain, hematemesis, melena, or hematochezia. SKIN: Denies lesions or rashes. CENTRAL NERVOUS SYSTEM: Denies any headache, diplopia, syncopal episodes. Remaining systems were reviewed. They were noted all negative. PAST MEDICAL HISTORY: 1. The patient is known with history of diverticulosis. 2. Degenerative intervertebral disk disease. 3. History of scoliosis. 4. Bipolar disorder and depression. 5. History of migraine headache. 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 Denies alcohol or illicit drug use. PAST SURGICAL HISTORY: 1. Essentially noted with a colonoscopy. 2. Two C-sections. 3. Surgery of the right lip. [place], [place] REPORT OF CONSULTATION NAME: JOE PEREZ UNIT #: [id number] ROOM: [facility] DOCTOR: KOURTNEY SCHOFIELD MD,NETTE BIRTHDATE: [birth year] FAMILY HISTORY: The patient essentially noted noncontributory. MEDICATIONS: Administered on this patient on this admission noted as use of Imitrex, nicotine replacement patches, Zithromax, Rocephin, and Tamiflu. DRUG ALLERGIES: No known allergies. PHYSICAL EXAMINATION: GENERAL: A 52-year-old white female currently noted awake and alert without any distress, sitting on the bed. Height of 5 feet 1 inch, weight of 124 pounds, BMI 23.5. VITAL SIGNS: Normal temperature, respiratory rate was recorded as 14-20, heart rate of 86-88, blood pressure 117/79-105/50. Pulse oxygen saturation noted on room air 95% saturation. HEENT: Shows head was atraumatic. Eyes nonicterus. NECK: Supple. CARDIOVASCULAR: S1, S2 audible. LUNGS: Noted free of any wheezing or crackles. ABDOMEN: Soft, nontender. Bowel sounds present, tenderness and nonfocal. EXTREMITIES: The patient without any edema, clubbing, cyanosis. CENTRAL NERVOUS SYSTEM: Cranial nerves 2-12 intact. No focal deficit. SKIN: Visible skin: No lesions or rashes. MUSCULOSKELETAL: Without any acute deformities. LABORATORY DATA: Lactic acid 1.5 on admission 12/14/2017. CMP of the patient 12/14/2017, glucose 135. Sodium 133, remaining electrolytes normal. Influenza A and B, nasal washing antigen negative. CBC on admission WBC count 24,000. Hemoglobin, hematocrit, and platelet count was normal. CBC, 21,000 WBCs on 12/15/2017. CBC that was done yesterday, WBC count normal, hemoglobin 11.7, hematocrit 35.7. Blood culture, no bacterial growths. Mycoplasma antibody. IgG was noted elevated. IgM was normal range. Chest x-ray of the patient that was done on 12/14/2017 does not show any acute abnormality. CT scan of chest that was completed, was reviewed shows small increase interstitial infiltration noted in the area of lower lungs with mild bronchiectasis, which appeared to be central. IMPRESSION: 1. The patient has been currently admitted to the hospital with leukocytosis. The patient's finding consistent with acute influenza infection, possibly superimposed atypical infection related to viral illness can be completely excluded. She has responded to treatment and doing very well at the present time. 2. History of chronic nicotine dependence. 3. Central bronchiectasis. The patient may require further assessment. PLAN OF TREATMENT: The patient could be discharged home on oral Zithromax as the only antibiotic necessary at this time. Tobacco cessation was addressed with the patient, nicotine replacement patches and she wished to use that upon discharge to help with the tobacco cessation. Continuation of the bronchodilator with oxygen supplementation only if necessary. Supportive plan [place], [place] REPORT OF CONSULTATION NAME: JOE PEREZ UNIT #: [id number] ROOM: [facility] DOCTOR: NETTE LONDON MD BIRTHDATE: [birth year] of care and treatment. NETTE OCONNELL MD CM:CONSTR:REPORT OF CONSULTATION 1400 12/19/17 [id number] interface
[~2017-12-14 17:58] MED LIST changes: +CLINDAMYCIN150 MG PO
[2017-12-14 18:09] VITALS: BP 129/87
[2017-12-14 18:48] LABS: HEMATOCRIT 44.6 % (37.0-47.0); MEAN CORPUSCULAR HGB 30.6 pg (27.0-31.0); MEAN CORPUSCULAR HGB CONC 33.6 g/dl (33.0-37.0); MEAN PLATELET VOLUME 9.7 fl (9.6-12.3); PLATELET COUNT AUTOMATED 336 10*3/uL (130-400); RED CELL DISTRI WIDTH 13.5 % (0-14.5)
[2017-12-14 19:04] LABS: ALBUMIN 3.6 gm/dl (3.1-4.5); ALKALINE PHOSPHATASE 95 U/L (45-117); BUN 16 mg/dl (7-24); CHLORIDE 97 mmol/L (98-107); CREATININE 0.86 mg/dL (0.55-1.02); POTASSIUM 3.7 mmol/L (3.5-5.1); SGOT/AST 15 IU/L (3-35); SGPT/ALT 20 U/L (12-78); SODIUM 133 mmol/L (136-145); TOTAL PROTEIN 9.1 gm/dL (6.4-8.2)
[2017-12-14 19:07] LABS: TOTAL CELLS COUNTED 100 #CELLS
[2017-12-14 19:08] LABS: PLATELET SUFFICIENCY NORMAL (NORMAL); ROULEAUX SLIGHT
[2017-12-14 19:19] VITALS: BP 112/64
[2017-12-14 20:15] VITALS: BP 96/65
[2017-12-15] VITALS: BP 99/56
[2017-12-15 04:00] VITALS: BP 133/78
[2017-12-15 06:59] LABS: MEAN CELL VOLUME 90.4 fl (81.0-99.0); MEAN CORPUSCULAR HGB 30.3 pg (27.0-31.0); MEAN CORPUSCULAR HGB CONC 33.5 g/dl (33.0-37.0); MEAN PLATELET VOLUME 9.7 fl (9.6-12.3); PLATELET COUNT AUTOMATED 288 10*3/uL (130-400); RED BLOOD COUNT 4.16 10*6/uL (4.10-5.10); RED CELL DISTRI WIDTH 13.4 % (0-14.5); WHITE BLOOD COUNT 21.1 10*3/uL (4.8-10.8)
[2017-12-15 07:02] LABS: HEMATOCRIT 37.6 % (37.0-47.0); HEMOGLOBIN 12.6 g/dl (12.0-16.0)
[2017-12-15 07:10] LABS: BUN 16 mg/dl (7-24); CHLORIDE 101 mmol/L (98-107); CREATININE 0.51 mg/dL (0.55-1.02); POTASSIUM 3.9 mmol/L (3.5-5.1); SODIUM 135 mmol/L (136-145)
[2017-12-15 07:43] LABS: PLATELET SUFFICIENCY NORMAL (NORMAL); TOTAL CELLS COUNTED 100 #CELLS
[2017-12-15 08:00] VITALS: BP 110/66
[2017-12-15 12:00] VITALS: BP 122/74
[2017-12-15 16:00] VITALS: BP 112/69
[2017-12-15 20:00] VITALS: BP 104/60
[2017-12-16] VITALS: BP 107/61
[2017-12-16 06:40] LABS: HEMATOCRIT 34.7 % (37.0-47.0); HEMOGLOBIN 11.7 g/dl (12.0-16.0); MEAN CELL VOLUME 91.1 fl (81.0-99.0); MEAN CORPUSCULAR HGB 30.7 pg (27.0-31.0); MEAN CORPUSCULAR HGB CONC 33.7 g/dl (33.0-37.0); PLATELET COUNT AUTOMATED 261 10*3/uL (130-400); RED BLOOD COUNT 3.81 10*6/uL (4.10-5.10); RED CELL DISTRI WIDTH 13.5 % (0-14.5); WHITE BLOOD COUNT 16.3 10*3/uL (4.8-10.8)
[2017-12-16 07:29] LABS: BASOPHILS 2 % (0-1); PLATELET SUFFICIENCY NORMAL (NORMAL); TOTAL CELLS COUNTED 100 #CELLS
[2017-12-16 08:00] VITALS: BP 113/69
[2017-12-16 12:00] VITALS: BP 114/72
[2017-12-16 15:11] LABS: MYCOPLASMA PNEUMONIAE IGG 735 U/mL (0-99); MYCOPLASMA PNEUMONIAE IGM <770 U/mL (0-769)
[2017-12-16 15:11] LABS: MYCOPLASMA PNEUMONIAE IGG 778 U/mL (0-99); MYCOPLASMA PNEUMONIAE IGM <770 U/mL (0-769)
[2017-12-16 16:00] VITALS: BP 118/68
[2017-12-16 20:00] VITALS: BP 105/62
[2017-12-17 00:06] VITALS: BP 99/59
[2017-12-17 06:44] LABS: BASO # 0.1 10*3/uL (0.0-0.1); BASO % 0.5 % (0.0-1.0); EOS # 0.1 10*3/uL (0.0-0.4); EOS % 1.1 % (1.0-4.0); HEMATOCRIT 35.4 % (37.0-47.0); HEMOGLOBIN 11.7 g/dl (12.0-16.0); LYMPH % 28.2 % (27.0-41.0); MEAN CELL VOLUME 92.9 fl (81.0-99.0); MEAN CORPUSCULAR HGB 30.7 pg (27.0-31.0); MEAN CORPUSCULAR HGB CONC 33.1 g/dl (33.0-37.0); MEAN PLATELET VOLUME 10.5 fl (9.6-12.3); MONO % 9.1 % (3.0-9.0); NEUT # 6.5 10*3/uL (2.3-7.9); NEUT % 60.4 % (47.0-73.0); PLATELET COUNT AUTOMATED 285 10*3/uL (130-400); RED BLOOD COUNT 3.81 10*6/uL (4.10-5.10); RED CELL DISTRI WIDTH 13.7 % (0-14.5); WHITE BLOOD COUNT 10.7 10*3/uL (4.8-10.8)
[2017-12-17 07:13] LABS: BUN 8 mg/dl (7-24); CHLORIDE 106 mmol/L (98-107); CREATININE 0.46 mg/dL (0.55-1.02); POTASSIUM 3.9 mmol/L (3.5-5.1); SODIUM 139 mmol/L (136-145)
[2017-12-17 08:00] VITALS: BP 104/72
[2017-12-17 12:00] VITALS: BP 146/86
[2017-12-17 17:07] VITALS: BP 110/69
[2017-12-17 20:00] VITALS: BP 110/58
[2017-12-18] VITALS: BP 105/50
[2017-12-18 08:31] VITALS: BP 114/67
[2017-12-18 12:08] VITALS: BP 117/79
[2017-12-18] MEDS ORDERED: AZITHROMYCIN500 M1 PO (15:07)
== END 2017-12-18 16:21 | disposition home or self-care (01) | DRG 871 ==
LOC: ED 17:58 → 4E 19:36 → EDHOLD 19:36 → 4E 19:47
PROVIDERS: Internal Medicine; Nurse Practitioner Family
DX: A41.89 Other specified sepsis (principal); J18.9 Pneumonia, unspecified organism; G43.909 Migraine, unspecified, not intractable, without status migrainosus; K57.90 Diverticulosis of intestine, part unspecified, without perforation or abscess without bleeding; F17.210 Nicotine dependence, cigarettes, uncomplicated; B34.9 Viral infection, unspecified; F31.9 Bipolar disorder, unspecified; M41.9 Scoliosis, unspecified; Z79.899 Other long term (current) drug therapy; Z71.6 Tobacco abuse counseling

== ENCOUNTER 2018-03-07 19:17 | Emergency (ER) | payer OTHER ==
[~2018-03-07] VITALS: Ht 154.9 cm; Wt 59.0 kg
[~2018-03-07 19:17] MED LIST changes: +AZITHROMYCIN500 M1 PO
[2018-03-07] MEDS ORDERED: AMOXICILLIN500 M2 PO (19:38)
== END 2018-03-07 20:42 | disposition home or self-care (01) ==
LOC: ED 19:17
DX: J02.9 Acute pharyngitis, unspecified (principal); G43.909 Migraine, unspecified, not intractable, without status migrainosus; Z98.890 Other specified postprocedural states; Z79.899 Other long term (current) drug therapy

== ENCOUNTER 2018-03-10 07:52 | Emergency (ER) | payer OTHER ==
[~2018-03-10] VITALS: Ht 154.9 cm; Wt 59.0 kg
[~2018-03-10 07:52] MED LIST changes: +AMOXICILLIN500 M2 PO
[2018-03-10 08:21] LABS: BASO # 0.1 10*3/uL (0.0-0.1); BASO % 0.4 % (0.0-1.0); EOS # 0.1 10*3/uL (0.0-0.4); EOS % 0.8 % (1.0-4.0); HEMATOCRIT 41.6 % (37.0-47.0); LYMPH # 3.2 10*3/uL (1.3-4.4); LYMPH % 20.2 % (27.0-41.0); MEAN CELL VOLUME 89.1 fl (81.0-99.0); MEAN CORPUSCULAR HGB CONC 33.7 g/dl (33.0-37.0); MEAN PLATELET VOLUME 9.8 fl (9.6-12.3); MONO # 1.1 10*3/uL (0.1-1.0); MONO % 7.1 % (3.0-9.0); NEUT # 11.1 10*3/uL (2.3-7.9); PLATELET COUNT AUTOMATED 330 10*3/uL (130-400); RED BLOOD COUNT 4.67 10*6/uL (4.10-5.10); RED CELL DISTRI WIDTH 13.8 % (0-14.5); WHITE BLOOD COUNT 15.6 10*3/uL (4.8-10.8)
[2018-03-10 08:37] LABS: ALKALINE PHOSPHATASE 81 U/L (45-117); BUN 10 mg/dl (7-24); CHLORIDE 105 mmol/L (98-107); CREATININE 0.53 mg/dL (0.55-1.02); POTASSIUM 3.5 mmol/L (3.5-5.1); SGOT/AST 17 IU/L (3-35); SGPT/ALT 22 U/L (12-78); SODIUM 138 mmol/L (136-145); TOTAL PROTEIN 7.6 gm/dL (6.4-8.2)
[2018-03-10 08:47] LABS: BILIRUBIN NEGATIVE (NEGATIVE); BLOOD 1+ (NEGATIVE); CLARITY SL CLOUDY (CLEAR); COLOR YELLOW (YELLOW); GLUCOSE NEGATIVE (NEGATIVE); KETONE NEGATIVE (NEGATIVE); LEUKO ESTERASE NEGATIVE (NEGATIVE); NITRITE NEGATIVE (NEGATIVE); SPECIFIC GRAVITY >= 1.030 (1.005-1.030); UROBILINOGEN 0.2 E.U./dl (0.2-1.0)
[2018-03-10 09:07] LABS: BACTERIA 2+; CALCIUM OXALATE CRYSTALS 1+; EPITHELIAL CELLS 16-20; MUCOUS 2+; YEAST 1+
[2018-03-10] MEDS ORDERED: NORCO 5-325 TA1 EACH PO (10:51)
[2018-03-10] MEDS ORDERED: CIPRO500 MG PO (10:51)
[2018-03-10] MEDS ORDERED: FLAGYL500 MG PO (10:51)
== END 2018-03-10 10:54 | disposition home or self-care (01) ==
LOC: ED 07:52
PROVIDERS: Emergency Medicine
DX: K57.92 Diverticulitis of intestine, part unspecified, without perforation or abscess without bleeding (principal); G43.909 Migraine, unspecified, not intractable, without status migrainosus; F17.200 Nicotine dependence, unspecified, uncomplicated; Z79.899 Other long term (current) drug therapy

== ENCOUNTER → 2018-04-15 | Outpatient (CLI) | payer OTHER | END | disposition home or self-care (01) | LOC: RAD 12:18 | DX: M25.562 Pain in left knee (principal) ==

== ENCOUNTER 2018-05-07 20:19 | Emergency (ER) | payer OTHER ==
[~2018-05-07] VITALS: Wt 54.4 kg
== END 2018-05-07 22:27 | disposition home or self-care (01) ==
LOC: ED 20:19
DX: G43.909 Migraine, unspecified, not intractable, without status migrainosus (principal); F17.200 Nicotine dependence, unspecified, uncomplicated; Z98.890 Other specified postprocedural states; Z79.899 Other long term (current) drug therapy

== ENCOUNTER → 2018-05-27 | Outpatient (CLI) | payer OTHER | END | disposition home or self-care (01) | LOC: US 05-24 13:00 → MAMMO 05-24 14:00 → US 13:00 | DX: N95.0 Postmenopausal bleeding (principal); D21.9 Benign neoplasm of connective and other soft tissue, unspecified; Z78.0 Asymptomatic menopausal state; Z98.51 Tubal ligation status ==

== ENCOUNTER → 2018-09-20 | Outpatient (CLI) | payer OTHER ==
[2018-09-20 16:24] LABS: MEAN CELL VOLUME 91.3 fl (81.0-99.0); MEAN CORPUSCULAR HGB 30.4 pg (27.0-31.0); MEAN CORPUSCULAR HGB CONC 33.3 g/dl (33.0-37.0); MEAN PLATELET VOLUME 9.4 fl (9.6-12.3); RED BLOOD COUNT 4.6 10*6/uL (4.10-5.10); RED CELL DISTRI WIDTH 14.4 % (0-14.5); WHITE BLOOD COUNT 13.5 10*3/uL (4.8-10.8)
[2018-09-20 16:57] LABS: ALBUMIN 3.3 gm/dl (3.1-4.5); ALKALINE PHOSPHATASE 72 U/L (45-117); BUN 16 mg/dl (7-24); CHLORIDE 110 mmol/L (98-107); CHOLESTEROL 172 mg/dL (<200); CREATININE 0.56 mg/dL (0.55-1.02); HDL CHOLESTEROL 42 mg/dl (40-60); LDL CHOLESTEROL 112 mg/dL (9-159); POTASSIUM 4.1 mmol/L (3.5-5.1); SGOT/AST 17 IU/L (3-35); SGPT/ALT 18 U/L (12-78); SODIUM 142 mmol/L (136-145); TRIGLYCERIDES 91 mg/dl (<150); VLDL CHOLESTEROL 18 mg/dL (6-40)
[2018-09-21 05:07] LABS: TOTAL PROTEIN, SERUM 7.2 g/dL (6.0-8.5)
[2018-09-21 15:12] LABS: A/G RATIO 1.1 (0.7-1.7); ALBUMIN 3.7 g/dL (2.9-4.4); ALPHA-1-GLOBULIN 0.3 g/dL (0.0-0.4); GAMMA GLOBULIN 1.2 g/dL (0.4-1.8); GLOBULIN, TOTAL 3.5 g/dL (2.2-3.9); M-SPIKE Not Observed g/dL (Not Observed)
[2018-09-22 13:04] LABS: ALBUMIN, URINE 33.1 % (.); ALPHA-2-GLOBULIN, URINE 20.1 % (.); BETA GLOBULIN, URINE 21.5 % (.); GAMMA GLOBULIN, URINE 24.2 % (.); M-SPIKE, % Not Observed % (Not Observed); PROTEIN,TOTAL - URINE RANDOM 18.1 mg/dL (Not Estab.)
== END | disposition home or self-care (01) ==
LOC: LAB 15:52
PROVIDERS: Family Medicine
DX: D72.829 Elevated white blood cell count, unspecified (principal); E78.00 Pure hypercholesterolemia, unspecified; E55.9 Vitamin D deficiency, unspecified

== ENCOUNTER → 2018-12-15 | Outpatient (CLI) | payer OTHER ==
[~2018-12-15] MED LIST changes: +ATARAX,VISTARIL50 MG PO; +Motrin,Rufen800 MG PO; +PREDNISONE10 MG PO
[2018-12-15 11:28] LABS: HEMATOCRIT 45.3 % (37.0-47.0); HEMOGLOBIN 14.6 g/dl (12.0-16.0); MEAN CORPUSCULAR HGB CONC 32.2 g/dl (33.0-37.0); MEAN PLATELET VOLUME 9.4 fl (9.6-12.3); RED BLOOD COUNT 4.87 10*6/uL (4.10-5.10); RED CELL DISTRI WIDTH 13.5 % (0-14.5)
[2018-12-15 12:06] LABS: ALBUMIN 3.7 gm/dl (3.1-4.5); ALKALINE PHOSPHATASE 96 U/L (45-117); BUN 19 mg/dl (7-24); CHLORIDE 105 mmol/L (98-107); CREATININE 0.66 mg/dL (0.55-1.02); POTASSIUM 3.8 mmol/L (3.5-5.1); SGOT/AST 16 IU/L (3-35); SGPT/ALT 26 U/L (12-78); SODIUM 138 mmol/L (136-145); TOTAL PROTEIN 8.4 gm/dL (6.4-8.2)
== END | disposition home or self-care (01) ==
LOC: LAB 11:13
PROVIDERS: Family Medicine
DX: M54.9 Dorsalgia, unspecified (principal); M25.50 Pain in unspecified joint

== ENCOUNTER → 2018-12-22 | Outpatient (CLI) | payer OTHER ==
[2018-12-23 06:13] LABS: TOTAL PROTEIN, SERUM 7.5 g/dL (6.0-8.5)
[2018-12-23 08:10] LABS: RHEUMATOID ARTHRITIS FACTOR <10.0 IU/mL (0.0-13.9)
[2018-12-23 16:07] LABS: ALBUMIN 3.7 g/dL (2.9-4.4); ALPHA-1-GLOBULIN 0.2 g/dL (0.0-0.4); ALPHA-2-GLOBULIN 0.9 g/dL (0.4-1.0); BETA GLOBULIN 1.2 g/dL (0.7-1.3); GAMMA GLOBULIN 1.4 g/dL (0.4-1.8); GLOBULIN, TOTAL 3.8 g/dL (2.2-3.9); M-SPIKE Not Observed g/dL (Not Observed)
[2018-12-26 15:07] LABS: ALBUMIN, URINE 48.8 % (.); ALPHA-1-GLOBULIN, URINE 3.8 % (.); ALPHA-2-GLOBULIN, URINE 16.6 % (.); BETA GLOBULIN, URINE 19.7 % (.); GAMMA GLOBULIN, URINE 11.1 % (.); M-SPIKE, % Not Observed % (Not Observed); PROTEIN,TOTAL - URINE RANDOM 12.5 mg/dL (Not Estab.)
== END | disposition home or self-care (01) ==
LOC: LAB 12:42
PROVIDERS: Family Medicine
DX: E74.9 Disorder of carbohydrate metabolism, unspecified (principal); M25.50 Pain in unspecified joint; M79.10 Myalgia, unspecified site; E88.09 Other disorders of plasma-protein metabolism, not elsewhere classified

== ENCOUNTER 2019-11-19 14:00 | Emergency (ER) | payer OTHER ==
[~2019-11-19] VITALS: Ht 154.9 cm; Wt 60.8 kg
[2019-11-19] MEDS ORDERED: Motrin,Rufen400 MG PO (14:30)
== END 2019-11-19 14:43 | disposition home or self-care (01) ==
LOC: ED 14:00
DX: R10.9 Unspecified abdominal pain (principal); Z48.01 Encounter for change or removal of surgical wound dressing; G43.909 Migraine, unspecified, not intractable, without status migrainosus; M19.90 Unspecified osteoarthritis, unspecified site; Z79.899 Other long term (current) drug therapy; Z79.2 Long term (current) use of antibiotics; Z98.890 Other specified postprocedural states; Z87.891 Personal history of nicotine dependence

== ENCOUNTER → 2019-12-29 | Outpatient (CLI) | payer OTHER ==
[~2019-12-29] MED LIST changes: +Motrin,Rufen400 MG PO
== END | disposition home or self-care (01) ==
LOC: RAD 09:38
DX: R68.84 Jaw pain (principal)

== ENCOUNTER → 2020-07-22 | Outpatient (CLI) | payer OTHER ==
[2020-07-22 10:08] LABS: HEMATOCRIT 40.4 % (37.0-47.0); MEAN CELL VOLUME 90.6 fl (81.0-99.0); MEAN CORPUSCULAR HGB 28.9 pg (27.0-31.0); MEAN CORPUSCULAR HGB CONC 31.9 g/dl (33.0-37.0); MEAN PLATELET VOLUME 10.4 fl (9.6-12.3); RED BLOOD COUNT 4.46 10*6/uL (4.10-5.10); RED CELL DISTRI WIDTH 15.9 % (0-14.5); WHITE BLOOD COUNT 10.4 10*3/uL (4.8-10.8)
[2020-07-22 10:34] LABS: ALBUMIN 3.2 gm/dl (3.1-4.5); ALKALINE PHOSPHATASE 91 U/L (45-117); BUN 19 mg/dl (7-24); CHLORIDE 112 mmol/L (98-107); CHOLESTEROL 175 mg/dL (<200); CREATININE 0.64 mg/dL (0.55-1.02); HDL CHOLESTEROL 46 mg/dl (40-60); LDL CHOLESTEROL 107 mg/dL (9-159); POTASSIUM 3.8 mmol/L (3.5-5.1); SGOT/AST 12 IU/L (3-35); SGPT/ALT 16 U/L (12-78); SODIUM 140 mmol/L (136-145); TOTAL PROTEIN 7.4 gm/dL (6.4-8.2); TRIGLYCERIDES 108 mg/dl (<150); VLDL CHOLESTEROL 22 mg/dL (6-40)
== END | disposition home or self-care (01) ==
LOC: LAB 09:33
PROVIDERS: ATTEND Family Medicine
DX: E55.9 Vitamin D deficiency, unspecified (principal); E78.00 Pure hypercholesterolemia, unspecified

== ENCOUNTER 2021-01-26 22:10 | Emergency (ER) | payer OTHER ==
[~2021-01-26] VITALS: Ht 154.9 cm; Wt 65.8 kg
[2021-01-26] MEDS ORDERED: NAPROXEN250 MG PO (23:02)
== END 2021-01-26 23:28 | disposition home or self-care (01) ==
LOC: ED 22:10
DX: S93.402A Sprain of unspecified ligament of left ankle, initial encounter (principal); S80.01XA Contusion of right knee, initial encounter; M79.641 Pain in right hand; Z79.899 Other long term (current) drug therapy; Z79.2 Long term (current) use of antibiotics; Z98.890 Other specified postprocedural states; W19.XXXA Unspecified fall, initial encounter; Y93.89 Activity, other specified; Y92.098 Other place in other non-institutional residence as the place of occurrence of the external cause; Y99.8 Other external cause status

== ENCOUNTER → 2021-02-07 | Outpatient (CLI) | payer OTHER ==
[~2021-02-07] MED LIST changes: +NAPROXEN250 MG PO
[2021-02-07 14:42] LABS: HEMATOCRIT 45.7 % (37.0-47.0); MEAN CELL VOLUME 90.5 fl (81.0-99.0); MEAN CORPUSCULAR HGB 28.7 pg (27.0-31.0); MEAN CORPUSCULAR HGB CONC 31.7 g/dl (33.0-37.0); MEAN PLATELET VOLUME 10.2 fl (9.6-12.3); RED BLOOD COUNT 5.05 10*6/uL (4.10-5.10); WHITE BLOOD COUNT 14.7 10*3/uL (4.8-10.8)
[2021-02-07 15:10] LABS: ALBUMIN 3.5 gm/dl (3.1-4.5); ALKALINE PHOSPHATASE 94 U/L (45-117); BUN 18 mg/dl (7-24); CHLORIDE 108 mmol/L (98-107); CREATININE 1.13 mg/dL (0.55-1.02); POTASSIUM 4.2 mmol/L (3.5-5.1); SGOT/AST 13 IU/L (3-35); SGPT/ALT 18 U/L (12-78); SODIUM 137 mmol/L (136-145); TOTAL PROTEIN 8.2 gm/dL (6.4-8.2)
== END | disposition home or self-care (01) ==
LOC: LAB 13:54
PROVIDERS: ATTEND Family Medicine
DX: B37.3 Candidiasis of vulva and vagina (principal); D72.829 Elevated white blood cell count, unspecified

== ENCOUNTER → 2021-02-10 | Outpatient (CLI) | payer OTHER | END | disposition home or self-care (01) | LOC: RAD 15:22 | PROVIDERS: ATTEND Family Medicine | DX: S82.62XD Displaced fracture of lateral malleolus of left fibula, subsequent encounter for closed fracture with routine healing (principal); X58.XXXD Exposure to other specified factors, subsequent encounter ==

== ENCOUNTER → 2021-03-13 | Outpatient (CLI) | payer OTHER ==
[2021-03-13 16:50] LABS: HEMATOCRIT 45.9 % (37.0-47.0); MEAN CELL VOLUME 86.9 fl (81.0-99.0); MEAN CORPUSCULAR HGB 28.6 pg (27.0-31.0); MEAN CORPUSCULAR HGB CONC 32.9 g/dl (33.0-37.0); MEAN PLATELET VOLUME 9.6 fl (9.6-12.3); RED BLOOD COUNT 5.28 10*6/uL (4.10-5.10); RED CELL DISTRI WIDTH 14.2 % (0-14.5); WHITE BLOOD COUNT 11.6 10*3/uL (4.8-10.8)
== END | disposition home or self-care (01) ==
LOC: LAB 16:39
PROVIDERS: ATTEND Family Medicine
DX: D72.0 Genetic anomalies of leukocytes (principal)

== ENCOUNTER 2021-04-13 14:48 | Emergency (ER) | payer OTHER ==
[~2021-04-13] VITALS: Ht 154.9 cm; Wt 67.1 kg
[2021-04-13] MEDS ORDERED: TOPIRAMATE50 M2 PO (15:21)
[2021-04-13 15:41] LABS: BILIRUBIN Negative (Negative); BLOOD Negative (Negative); CLARITY Turbid (Clear); COLOR Yellow (Yellow); GLUCOSE Negative (Negative); KETONE Negative (Negative); LEUKO ESTERASE 1+ (Negative); NITRITE Negative (Negative); SPECIFIC GRAVITY 1.015 (1.001-1.030)
[2021-04-13 15:48] LABS: BACTERIA 2+; RBC 0-2 rbc/hpf (0-2)
[2021-04-13 16:01] LABS: BASO # 0.1 10*3/uL (0.0-0.1); BASO % 0.5 % (0.0-1.0); EOS # 0.2 10*3/uL (0.0-0.4); EOS % 1.4 % (1.0-4.0); HEMATOCRIT 41.7 % (37.0-47.0); LYMPH # 3.8 10*3/uL (1.3-4.4); LYMPH % 29.9 % (27.0-41.0); MEAN CELL VOLUME 89.3 fl (81.0-99.0); MEAN CORPUSCULAR HGB 28.5 pg (27.0-31.0); MEAN CORPUSCULAR HGB CONC 31.9 g/dl (33.0-37.0); MEAN PLATELET VOLUME 9.8 fl (9.6-12.3); MONO # 1.1 10*3/uL (0.1-1.0); MONO % 8.8 % (3.0-9.0); NEUT # 7.5 10*3/uL (2.3-7.9); PLATELET COUNT AUTOMATED 296 10*3/uL (130-400); RED BLOOD COUNT 4.67 10*6/uL (4.10-5.10); RED CELL DISTRI WIDTH 14.2 % (0-14.5); WHITE BLOOD COUNT 12.8 10*3/uL (4.8-10.8)
[2021-04-13 16:16] LABS: ALBUMIN 2.9 gm/dl (3.1-4.5); ALKALINE PHOSPHATASE 105 U/L (45-117); BUN 16 mg/dl (7-24); CHLORIDE 110 mmol/L (98-107); CREATININE 0.62 mg/dL (0.55-1.02); POTASSIUM 3.6 mmol/L (3.5-5.1); SGOT/AST 12 IU/L (3-35); SGPT/ALT 19 U/L (12-78); SODIUM 139 mmol/L (136-145); TOTAL PROTEIN 7.2 gm/dL (6.4-8.2)
[2021-04-13] MEDS ORDERED: CEPHALEXIN500 M1 PO (20:03)
== END 2021-04-13 20:21 | disposition home or self-care (01) ==
LOC: ED 14:48
PROVIDERS: Emergency Medicine; Nurse Practitioner Family
DX: N39.0 Urinary tract infection, site not specified (principal); K46.9 Unspecified abdominal hernia without obstruction or gangrene; Z79.899 Other long term (current) drug therapy; Z98.890 Other specified postprocedural states

== ENCOUNTER → 2021-05-04 | Outpatient (CLI) | payer OTHER ==
[~2021-05-04] MED LIST changes: +CEPHALEXIN500 M1 PO; +TOPIRAMATE50 M2 PO
[2021-05-04 13:12] LABS: HEMATOCRIT 42.8 % (37.0-47.0); MEAN CORPUSCULAR HGB 28.3 pg (27.0-31.0); MEAN CORPUSCULAR HGB CONC 31.8 g/dl (33.0-37.0); MEAN PLATELET VOLUME 9.9 fl (9.6-12.3); RED BLOOD COUNT 4.81 10*6/uL (4.10-5.10); WHITE BLOOD COUNT 13.8 10*3/uL (4.8-10.8)
[2021-05-04 13:27] LABS: ALBUMIN 2.9 gm/dl (3.1-4.5); ALKALINE PHOSPHATASE 88 U/L (45-117); BUN 16 mg/dl (7-24); CHLORIDE 108 mmol/L (98-107); CREATININE 0.59 mg/dL (0.55-1.02); POTASSIUM 3.4 mmol/L (3.5-5.1); SGOT/AST 15 IU/L (3-35); SGPT/ALT 24 U/L (12-78); SODIUM 140 mmol/L (136-145); TOTAL PROTEIN 7.4 gm/dL (6.4-8.2)
== END | disposition home or self-care (01) ==
LOC: LAB 12:40
PROVIDERS: ATTEND Family Medicine
DX: D72.829 Elevated white blood cell count, unspecified (principal); L03.311 Cellulitis of abdominal wall; D64.9 Anemia, unspecified

== ENCOUNTER 2021-11-23 16:32 | Emergency (ER) | payer MEDICARE, MEDICAID ==
[~2021-11-23] VITALS: Ht 172.7 cm; Wt 90.7 kg
== END 2021-11-23 19:14 | disposition home or self-care (01) ==
LOC: ED 16:32
DX: S31.114A Laceration without foreign body of abdominal wall, left lower quadrant without penetration into peritoneal cavity, initial encounter (principal); G43.909 Migraine, unspecified, not intractable, without status migrainosus; M19.90 Unspecified osteoarthritis, unspecified site; Z79.899 Other long term (current) drug therapy; Z98.890 Other specified postprocedural states; X58.XXXA Exposure to other specified factors, initial encounter; Y93.89 Activity, other specified; Y92.89 Other specified places as the place of occurrence of the external cause; Y99.8 Other external cause status

== ENCOUNTER → 2022-03-20 | Outpatient (CLI) | payer MEDICARE | END | disposition home or self-care (01) | LOC: RAD 13:06 | PROVIDERS: ATTEND Family Medicine | DX: M47.816 Spondylosis without myelopathy or radiculopathy, lumbar region (principal); M85.88 Other specified disorders of bone density and structure, other site; M25.572 Pain in left ankle and joints of left foot ==

== ENCOUNTER → 2022-05-14 | Outpatient (CLI) | payer MEDICARE ==
[~2022-05-14] MED LIST changes: +IBU800 M2 PO
== END | disposition home or self-care (01) ==
LOC: MAMMO 05-06 10:00
PROVIDERS: ATTEND Family Medicine
DX: R92.8 Other abnormal and inconclusive findings on diagnostic imaging of breast (principal); N64.4 Mastodynia

== ENCOUNTER 2022-05-16 10:41 | Emergency (ER) | payer MEDICARE ==
[~2022-05-16] VITALS: Ht 154.9 cm; Wt 75.3 kg
[~2022-05-16 10:41] MED LIST changes: -IBU800 M2 PO
[2022-05-16] MEDS ORDERED: IBU800 M2 PO (11:26)
== END 2022-05-16 12:53 | disposition home or self-care (01) ==
LOC: ED 10:41
DX: S80.01XA Contusion of right knee, initial encounter (principal); S80.11XA Contusion of right lower leg, initial encounter; S09.90XA Unspecified injury of head, initial encounter; F17.200 Nicotine dependence, unspecified, uncomplicated; Z79.899 Other long term (current) drug therapy; Z98.890 Other specified postprocedural states; W17.2XXA Fall into hole, initial encounter; Y93.89 Activity, other specified; Y92.89 Other specified places as the place of occurrence of the external cause; Y99.8 Other external cause status

== ENCOUNTER → 2022-05-27 | Outpatient (CLI) | payer MEDICARE, MEDICAID ==
[~2022-05-27] MED LIST changes: +IBU800 M2 PO
[2022-05-27 14:21] LABS: HEMATOCRIT 39.6 % (37.0-47.0); MEAN CORPUSCULAR HGB 28.8 pg (27.0-31.0); MEAN CORPUSCULAR HGB CONC 33.1 g/dl (33.0-37.0); MEAN PLATELET VOLUME 10.1 fl (9.6-12.3); RED BLOOD COUNT 4.55 10*6/uL (4.10-5.10); RED CELL DISTRI WIDTH 17.1 % (0-14.5); WHITE BLOOD COUNT 13.3 10*3/uL (4.8-10.8)
[2022-05-27 14:44] LABS: ALKALINE PHOSPHATASE 91 U/L (45-117); BUN 21 mg/dl (7-24); CHLORIDE 111 mmol/L (98-107); CHOLESTEROL 180 mg/dL (<200); CREATININE 0.69 mg/dL (0.55-1.02); FREE T4 0.99 ng/dl (0.76-1.46); LDL CHOLESTEROL 112 mg/dL (9-159); POTASSIUM 3.2 mmol/L (3.5-5.1); SGOT/AST 15 IU/L (3-35); SGPT/ALT 20 U/L (12-78); SODIUM 139 mmol/L (136-145); TOTAL PROTEIN 7.4 gm/dL (6.4-8.2); TRIGLYCERIDES 110 mg/dl (<150)
[2022-05-27 15:29] LABS: VITAMIN D, 25-HYDROXY 25.7 ng/mL (30-100)
== END | disposition home or self-care (01) ==
LOC: LAB 13:41
PROVIDERS: ATTEND Family Medicine
DX: B35.1 Tinea unguium (principal); R53.83 Other fatigue; E55.9 Vitamin D deficiency, unspecified; R63.5 Abnormal weight gain; F17.200 Nicotine dependence, unspecified, uncomplicated; Z79.899 Other long term (current) drug therapy

== ENCOUNTER → 2022-06-09 | Outpatient (CLI) | payer MEDICARE, MEDICAID ==
[2022-06-09 10:51] LABS: HEMATOCRIT 42.4 % (37.0-47.0); MEAN CELL VOLUME 88.3 fl (81.0-99.0); MEAN CORPUSCULAR HGB 28.1 pg (27.0-31.0); MEAN CORPUSCULAR HGB CONC 31.8 g/dl (33.0-37.0); MEAN PLATELET VOLUME 9.6 fl (9.6-12.3); RED BLOOD COUNT 4.8 10*6/uL (4.10-5.10); RED CELL DISTRI WIDTH 16.4 % (0-14.5); WHITE BLOOD COUNT 12.3 10*3/uL (4.8-10.8)
== END | disposition home or self-care (01) ==
LOC: LAB 10:25
PROVIDERS: ATTEND Family Medicine
DX: D72.829 Elevated white blood cell count, unspecified (principal)

== ENCOUNTER → 2022-11-24 | Outpatient (CLI) | payer OTHER, MEDICAID | END | disposition home or self-care (01) | LOC: LAB 15:31 | PROVIDERS: ATTEND Nurse Practitioner Family | DX: D72.829 Elevated white blood cell count, unspecified (principal); Z79.899 Other long term (current) drug therapy ==

== ENCOUNTER → 2022-12-31 | Outpatient (CLI) | payer OTHER, MEDICAID | END | disposition home or self-care (01) | LOC: CT 00:46 | PROVIDERS: ATTEND Surgery | DX: K43.9 Ventral hernia without obstruction or gangrene (principal); I70.0 Atherosclerosis of aorta ==

== ENCOUNTER → 2023-01-12 | Outpatient (CLI) | payer OTHER, MEDICAID | END | disposition home or self-care (01) | LOC: LAB 15:47 | PROVIDERS: ATTEND Nurse Practitioner Family | DX: D72.829 Elevated white blood cell count, unspecified (principal); R09.81 Nasal congestion; R05.9 Cough, unspecified; Z87.19 Personal history of other diseases of the digestive system ==

== ENCOUNTER → 2023-02-18 | Outpatient (CLI) | payer OTHER, MEDICAID ==
[2023-02-18 12:55] LABS: BASO # 0.1 10*3/uL (0.0-0.1); BASO % 0.5 % (0.0-1.0); EOS # 0.2 10*3/uL (0.0-0.4); EOS % 1.6 % (1.0-4.0); HEMATOCRIT 46.1 % (37.0-47.0); LYMPH # 3.6 10*3/uL (1.3-4.4); LYMPH % 26.8 % (27.0-41.0); MEAN CELL VOLUME 86.8 fl (81.0-99.0); MEAN CORPUSCULAR HGB 28.4 pg (27.0-31.0); MEAN CORPUSCULAR HGB CONC 32.8 g/dl (33.0-37.0); MEAN PLATELET VOLUME 9.8 fl (9.6-12.3); MONO % 7.3 % (3.0-9.0); NEUT # 8.5 10*3/uL (2.3-7.9); NEUT % 63.4 % (47.0-73.0); PLATELET COUNT AUTOMATED 305 10*3/uL (130-400); RED BLOOD COUNT 5.31 10*6/uL (4.10-5.10); RED CELL DISTRI WIDTH 14.8 % (0-14.5); WHITE BLOOD COUNT 13.4 10*3/uL (4.8-10.8)
== END | disposition home or self-care (01) ==
LOC: LAB 12:21
PROVIDERS: ATTEND Family Medicine
DX: D72.829 Elevated white blood cell count, unspecified (principal)

== ENCOUNTER → 2023-03-23 | Outpatient (CLI) | payer OTHER, MEDICAID ==
[2023-03-23 10:31] LABS: BASO # 0.1 10*3/uL (0.0-0.1); BASO % 0.6 % (0.0-1.0); EOS # 0.2 10*3/uL (0.0-0.4); EOS % 1.3 % (1.0-4.0); HEMATOCRIT 47.2 % (37.0-47.0); LYMPH # 3.3 10*3/uL (1.3-4.4); LYMPH % 28.5 % (27.0-41.0); MEAN CELL VOLUME 87.7 fl (81.0-99.0); MEAN CORPUSCULAR HGB 28.6 pg (27.0-31.0); MEAN CORPUSCULAR HGB CONC 32.6 g/dl (33.0-37.0); MEAN PLATELET VOLUME 9.9 fl (9.6-12.3); MONO # 0.8 10*3/uL (0.1-1.0); MONO % 7.2 % (3.0-9.0); NEUT # 7.2 10*3/uL (2.3-7.9); NEUT % 61.7 % (47.0-73.0); PLATELET COUNT AUTOMATED 309 10*3/uL (130-400); RED BLOOD COUNT 5.38 10*6/uL (4.10-5.10); WHITE BLOOD COUNT 11.6 10*3/uL (4.8-10.8)
== END | disposition home or self-care (01) ==
LOC: LAB 09:40
PROVIDERS: ATTEND Nurse Practitioner Family
DX: J44.9 Chronic obstructive pulmonary disease, unspecified (principal); D72.829 Elevated white blood cell count, unspecified; J02.9 Acute pharyngitis, unspecified; Z72.0 Tobacco use

== ENCOUNTER → 2023-06-07 | Outpatient (CLI) | payer OTHER, MEDICAID ==
[2023-06-07 11:19] LABS: BASO # 0.1 10*3/uL (0.0-0.1); BASO % 0.4 % (0.0-1.0); EOS # 0.1 10*3/uL (0.0-0.4); EOS % 1.2 % (1.0-4.0); HEMATOCRIT 42.6 % (37.0-47.0); LYMPH % 25.6 % (27.0-41.0); MEAN CELL VOLUME 87.7 fl (81.0-99.0); MEAN CORPUSCULAR HGB 27.8 pg (27.0-31.0); MEAN CORPUSCULAR HGB CONC 31.7 g/dl (33.0-37.0); MEAN PLATELET VOLUME 9.9 fl (9.6-12.3); MONO # 0.6 10*3/uL (0.1-1.0); MONO % 4.9 % (3.0-9.0); NEUT # 7.8 10*3/uL (2.3-7.9); NEUT % 67.5 % (47.0-73.0); PLATELET COUNT AUTOMATED 348 10*3/uL (130-400); RED BLOOD COUNT 4.86 10*6/uL (4.10-5.10); RED CELL DISTRI WIDTH 15.3 % (0-14.5); WHITE BLOOD COUNT 11.5 10*3/uL (4.8-10.8)
[2023-06-07 11:52] LABS: ALKALINE PHOSPHATASE 88 U/L (46-116); BUN 10 mg/dl (9-23); CHLORIDE 103 mmol/L (98-107); CHOLESTEROL 180 mg/dL (<200); LDL CHOLESTEROL 116 mg/dL (9-159); POTASSIUM 3.5 mmol/L (3.4-5.1); SGPT/ALT 16 U/L (10-49); TOTAL PROTEIN 7.3 gm/dL (6.0-8.0); TRIGLYCERIDES 92 mg/dl (<150)
== END | disposition home or self-care (01) ==
LOC: LAB 10:26
PROVIDERS: ATTEND Nurse Practitioner Family
DX: D72.829 Elevated white blood cell count, unspecified (principal); E78.00 Pure hypercholesterolemia, unspecified; Z87.19 Personal history of other diseases of the digestive system; Z72.0 Tobacco use

== ENCOUNTER → 2023-08-20 | Outpatient (CLI) | payer OTHER, MEDICAID | END | disposition home or self-care (01) | LOC: CT 08-16 16:00 | PROVIDERS: ATTEND Nurse Practitioner Family | DX: G89.18 Other acute postprocedural pain (principal); K82.8 Other specified diseases of gallbladder ==

== ENCOUNTER → 2023-09-20 | Outpatient (CLI) | payer OTHER, MEDICAID ==
[2023-09-20 15:20] LABS: BASO % 0.3 % (0.0-1.0); EOS # 0.1 10*3/uL (0.0-0.4); EOS % 0.8 % (1.0-4.0); LYMPH # 2.8 10*3/uL (1.3-4.4); LYMPH % 21.2 % (27.0-41.0); MEAN CELL VOLUME 85.3 fl (81.0-99.0); MEAN CORPUSCULAR HGB 27.2 pg (27.0-31.0); MEAN CORPUSCULAR HGB CONC 31.9 g/dl (33.0-37.0); MEAN PLATELET VOLUME 9.8 fl (9.6-12.3); MONO # 1.1 10*3/uL (0.1-1.0); MONO % 8.4 % (3.0-9.0); NEUT % 68.7 % (47.0-73.0); PLATELET COUNT AUTOMATED 349 10*3/uL (130-400); RED BLOOD COUNT 5.51 10*6/uL (4.10-5.10); RED CELL DISTRI WIDTH 17.1 % (0-14.5); WHITE BLOOD COUNT 13.1 10*3/uL (4.8-10.8)
[2023-09-20 15:42] LABS: ALKALINE PHOSPHATASE 99 U/L (46-116); BUN 18 mg/dl (9-23); CHLORIDE 106 mmol/L (98-107); CHOLESTEROL 221 mg/dL (<200); LDL CHOLESTEROL 136 mg/dL (9-159); POTASSIUM 4.2 mmol/L (3.4-5.1); SGPT/ALT 14 U/L (5-49); TOTAL PROTEIN 7.8 gm/dL (6.0-8.0); TRIGLYCERIDES 195 mg/dl (<150)
== END | disposition home or self-care (01) ==
LOC: LAB 14:51
PROVIDERS: ATTEND Nurse Practitioner Family
DX: D72.829 Elevated white blood cell count, unspecified (principal); R73.01 Impaired fasting glucose; Z87.19 Personal history of other diseases of the digestive system; Z79.899 Other long term (current) drug therapy

== ENCOUNTER → 2023-09-28 | Outpatient (CLI) | payer OTHER, MEDICAID | END | disposition home or self-care (01) | LOC: LAB 12:51 | PROVIDERS: ATTEND Nurse Practitioner Family | DX: R89.9 Unspecified abnormal finding in specimens from other organs, systems and tissues (principal); M25.50 Pain in unspecified joint ==

== ENCOUNTER → 2024-08-07 | Outpatient (CLI) | payer OTHER, MEDICAID | END | disposition home or self-care (01) | LOC: LAB 12:52 | PROVIDERS: ATTEND Nurse Practitioner Family | DX: Z00.00 Encounter for general adult medical examination without abnormal findings (principal); Z12.4 Encounter for screening for malignant neoplasm of cervix ==

== ENCOUNTER → 2024-08-21 | Outpatient (CLI) | payer OTHER, MEDICAID ==
[2024-08-21 14:54] LABS: BASO # 0.1 10*3/uL (0.0-0.1); BASO % 0.6 % (0.0-1.0); EOS # 0.1 10*3/uL (0.0-0.4); EOS % 0.9 % (1.0-4.0); HEMATOCRIT 45.4 % (37.0-47.0); LYMPH # 3.3 10*3/uL (1.3-4.4); MEAN CORPUSCULAR HGB 29.4 pg (27.0-31.0); MONO % 8.2 % (3.0-9.0); NEUT # 8.1 10*3/uL (2.3-7.9); NEUT % 63.8 % (47.0-73.0); PLATELET COUNT AUTOMATED 299 10*3/uL (130-400); RED CELL DISTRI WIDTH 15.4 % (0-14.5); WHITE BLOOD COUNT 12.7 10*3/uL (4.8-10.8)
[2024-08-21 15:28] LABS: ALKALINE PHOSPHATASE 94 U/L (46-116); BUN 21 mg/dl (9-23); CHLORIDE 102 mmol/L (98-107); CHOLESTEROL 202 mg/dL (<200); LDL CHOLESTEROL 113 mg/dL (9-159); POTASSIUM 3.9 mmol/L (3.4-5.1); SGPT/ALT 23 U/L (5-49); TOTAL PROTEIN 7.9 gm/dL (6.0-8.0); TRIGLYCERIDES 167 mg/dl (<150)
== END | disposition home or self-care (01) ==
LOC: LAB 13:52
PROVIDERS: ATTEND Nurse Practitioner Family
DX: Z12.4 Encounter for screening for malignant neoplasm of cervix (principal); Z79.899 Other long term (current) drug therapy; J44.9 Chronic obstructive pulmonary disease, unspecified; K21.9 Gastro-esophageal reflux disease without esophagitis

== ENCOUNTER → 2025-05-29 | Outpatient (CLI) | payer OTHER, MEDICAID ==
[2025-05-29 18:31] LABS: BUN 11 mg/dl (9-23); LDL CHOLESTEROL 119 mg/dL (9-159)
== END | disposition home or self-care (01) ==
LOC: RHCWE 15:09
PROVIDERS: ATTEND Nurse Practitioner Family
DX: J44.9 Chronic obstructive pulmonary disease, unspecified (principal); G43.909 Migraine, unspecified, not intractable, without status migrainosus; Z13.220 Encounter for screening for lipoid disorders; Z13.1 Encounter for screening for diabetes mellitus; R73.01 Impaired fasting glucose; Z13.29 Encounter for screening for other suspected endocrine disorder; Z79.899 Other long term (current) drug therapy